=== PATIENT | female | born 1960 | race Caucasian/White ===

== ENCOUNTER 2016-05-20 04:45 | Inpatient (IN) | payer MEDICARE, OTHER ==
[~2016-05-20] VITALS: Ht 152.4 cm; Wt 38.5 kg
[~2016-05-20 04:45] MED LIST: HYDR-3498 PO; LIPA1CAP2 PO; ONDA4TAB35 PO; RAMI1.253 PO
[2016-05-20] MEDS ORDERED: ONDANSETRON 4 MG INJ IV STA (05:33)
[2016-05-20 05:36] LABS: ADD SCAN DIFF NO
[2016-05-20 05:47] LABS: BASOPHILS % 0.1 % (0.0-2.0); HEMATOCRIT 38.8 % (37.0-47.0); HEMOGLOBIN 12.9 g/dl (12.0-16.0); LYMPHOCYTES # 0.8 10^3/ul (0.8-2.9); LYMPHOCYTES % 8.4 % (15.0-51.0); MEAN CORPUSCULAR HGB CONC 33.2 g/dl (32.0-37.0); MEAN CORPUSCULAR VOLUME 96.3 fl (82.0-101.0); MEAN PLATELET VOLUME 10.8 fl (7.4-10.4); MONOCYTE # 0.5 10^3/ul (0.3-0.9); MONOCYTES % 5.9 % (0.0-11.0); NEUTROPHIL # 7.6 10^3/ul (1.6-7.5); NEUTROPHILS % 85.4 % (39.0-77.0); PLATELET COUNT 171 10^3/UL (140-415); RED BLOOD COUNT 4.03 10^6/ul (4.20-5.40); RED CELL DISTRIBUTION WIDTH 12.4 % (11.5-14.5)
[2016-05-20 05:54] LABS: CHLORIDE 110 mmol/L (97-110)
[2016-05-20 05:55] LABS: ALBUMIN 2.5 g/dl (3.3-4.9); POTASSIUM 4.4 mmol/L (3.5-5.1); SODIUM 133 mmol/L (135-144)
[2016-05-20 05:58] LABS: ALANINE AMINOTRANSFERASE 51 IU/L (13-69); ALBUMIN/GLOBULIN RATIO 0.73; ALKALINE PHOSPHATASE 153 IU/L (42-121); ANION GAP 10 (8-16); ASPARTATE AMINO TRANSFERASE 53 IU/L (15-46); BILIRUBIN,INDIRECT 0.2 mg/dl (0-1.1); BILIRUBIN,TOTAL 0.2 mg/dl (0.2-1.3); BLOOD UREA NITROGEN 7 mg/dl (7-20); CARBON DIOXIDE 17 mmol/L (21-31); CREATININE 0.82 mg/dl (0.44-1.00); GLUCOSE 81 mg/dl (70-220); TOTAL PROTEIN 5.9 g/dl (6.1-8.1)
[2016-05-20 05:59] LABS: INR 0.88; PROTIME 11.9 Sec (12.2-14.2); PT RATIO 0.9
[2016-05-20 06:00] LABS: PARTIAL THROMBOPLASTIN TIME 25.5 Sec (25.0-35.0)
[2016-05-20] MEDS ORDERED: morphine 2 MG INJ IV ONE (06:00)
--- NOTE | 2016-05-20 06:07 | RADRPT ---
PROCEDURE: XR Chest. CLINICAL INDICATION: Sepsis . Lung and gastric cancer. TECHNIQUE: Portable single view of the chest COMPARISON: 06/11/2015 FINDINGS: Clips and suture material are present from prior right partial lung resection. Right chest port is again seen in place. Heart size remains within normal limits. There is improved aeration of the la teral right lung base compared with prior, likely predominately due to decrease in pleural effusion. No focal infiltrate or pleural effusion is seen. No bony abnormality is seen. No overt congestiv e heart failure. IMPRESSION: Resolved right pleural effusion. Postsurgical changes. No definite acute disease. Right chest por t. RPTAT: HLBE Physician Frank Date Time Electronically viewed and signed by Renetta Frederick Physician on 05/20/2016 06:07 RIZWANA/
[2016-05-20 06:13] LABS: TROPONIN-I < 0.012 ng/ml (0.00-0.12)
[2016-05-20] MEDS ORDERED: SODIUM CHLORIDE 0.9% 1L BAG IV* STA (06:30)
[2016-05-20] MEDS ORDERED: DIPHENOXYLATE/ATROPINE TAB PO ONE (06:30)
[2016-05-20] MEDS ORDERED: SOD CHLORIDE 0.9% 1,000 ML IV STA ×2 (07:33→09:08)
--- NOTE | 2016-05-20 07:33 | ERA ---
ER Documentation Chief Complaint Date/Time DATE: 05/20/16 TIME: 07:28 Chief Complaint Pt c/o lower abd pain and uncontrollable diarrhe since This is a very pleasant 55-year-old female with a known history of gastric carcinoma initially diagnosed in 2002. The patient had undergone radiation and chemotherapy and had a gastrectomy with a Whipple procedure. In 2014 the patient indicated she developed lung carcinoma and had a partial right lobectomy. The patient indicates that over the past 24 hours she has had lower abdominal pain. She indicates the pain is a cramping like sensation. She has had multiple episodes of loose watery stools in the past 24 hours. The patient is felt nauseous and anorexic. The patient however denies any bilious or nonbilious emesis. The patient indicates she did not take any analgesic medication prior to arrival. She also denies any recent antibiotic use or hospitalizations. She has had no fevers or shaking or chills. She denies any frequency urgency or dysuria. She denies any shortness of breath at rest or exertion and denies any recent weight loss. ROS All systems reviewed and are negative except as per history of present illness. Medications Home Meds Active Scripts Ondansetron Hcl* (Zofran* ODT) 4 mg -ODT Tab.disper, 4 MG PO Q6 Y for NAUSEA AND /OR VOMITING, #10 TAB Prov:KELLEY THOMAS MD 06/11/15 Hydrocodone Bit-Acetaminophen* (Sipsey*) 5-325 Mg Tab, 1 TAB PO Q6 Y for PAIN, # 12 TAB Prov:KELLEY THOMAS MD 06/11/15 Reported Medications Ramipril (Ramipril) 1.25 Mg Capsule, 1.25 MG PO DAILY, CAP 06/11/15 Itdctf-Kyqrgbbf-Pzwrlmc* (Creon DR* 6,000) 6,000 L-19,000-30,000 Unit Capsule. , 1 CAP PO TID, CAP 01/09/14 Allergies Allergies: Coded Allergies: No Known Allergy (Unverified , 06/11/15) PMhx/Soc History of Surgery: Yes (STOMACH SX 09/2002, TUBAL LG) Anesthesia Reaction: No Hx Neurological Disorder: No Hx Respiratory Disorders: No Hx Cardiac Disorders: Yes (HTN (NO MED TX)) Hx Psychiatric Problems: No Hx Alcohol Use: No Hx Substance Use: No Hx Tobacco Use: No Physical Exam Vitals Vital Signs Date Time Temp Pulse Resp B/P Pulse Ox O2 Delivery O2 Flow Rate FiO2 05/20/16 07:46 98.8 101 18 135/76 100 Room Air 05/20/16 05:02 100.0 125 20 137/87 100 Physical Exam Constitutional:Well-developed. Well-nourished. HEENT:Normocephalic. Atraumatic.Pupils were equal round reactive to light. Dry mucous membranes.No tonsillar exudates. Neck: No nuchal rigidity. No lymphadenopathy. No posterior cervical spine tenderness or step-offs. Respiratory: Not using accessory muscles of respiration.Lungs were clear to auscultation bilaterally. No rhonchi. No rales. No wheezing. Cardiovascular: Tachycardia with regular rhythm.No murmurs. No rubs were appreciated.S1, S2 normal. Distal pulses are palpable 2+ bilaterally. Right chest wall port catheter in place. GI: Abdomen was soft. Tenderness in the left lower quadrant. Chevron's incision scar present. Non Distended. No pulsatile abdominal masses or bruits. No rebound. No guarding. Bowel sounds were present and normal. Muscle skeletal: Full range of motion of both the upper and lower extremities bilaterally.Normal muscle tone.No assymetrical calf tenderness or swelling. Skin: No petechia, no purpura. No lesions on the palms or the soles of the feet. No maculopapular rash. NEURO: Patient was alert, awake, orientated x3.No facial droop. Gait observed and normal with no ataxia.Speech had regular rate and rhythm. No focal neurological deficits. Result Diagram: 05/20/1625 05/20/1625 Results 24 hrs Laboratory Tests Test 05/20/16 05:25 White Blood Count 9.010^3/ul Red Blood Count 4.0310^6/ul Hemoglobin 12.9g/dl Hematocrit 38.8% Mean Corpuscular Volume 96.3fl Mean Corpuscular Hemoglobin 32.0pg Mean Corpuscular Hemoglobin Concent 33.2g/dl Red Cell Distribution Width 12.4% Platelet Count 03751^3/UL Mean Platelet Volume 10.8fl Neutrophils % 85.4% Lymphocytes % 8.4% Monocytes % 5.9% Eosinophils % 0.0% Basophils % 0.1% Nucleated Red Blood Cells % 0.0/100WBC Neutrophils # 7.610^3/ul Lymphocytes # 0.810^3/ul Monocytes # 0.510^3/ul Eosinophils # 0.010^3/ul Basophils # 0.010^3/ul Nucleated Red Blood Cells # 0.010^3/ul Prothrombin Time 11.9Sec Prothrombin Time Ratio 0.9 INR International Normalized Ratio 0.88 Activated Partial Thromboplast Time 25.5Sec Sodium Level 133mmol/L Potassium Level 4.4mmol/L Chloride Level 110mmol/L Carbon Dioxide Level 17mmol/L Anion Gap 10 Blood Urea Nitrogen 7mg/dl Creatinine 0.82mg/dl Glucose Level 81mg/dl Lactic Acid Level 1.6mmol/L Calcium Level 8.0mg/dl Total Bilirubin 0.2mg/dl Direct Bilirubin 0.00mg/dl Indirect Bilirubin 0.2mg/dl Aspartate Amino Transf (AST/SGOT) 53IU/L Alanine Aminotransferase (ALT/SGPT) 51IU/L Alkaline Phosphatase 153IU/L Troponin I < 0.012ng/ml Total Protein 5.9g/dl Albumin 2.5g/dl Globulin 3.40g/dl Albumin/Globulin Ratio 0.73 Current Medications Medications (Trade) Dose Ordered Sig/Priscila Route PRN Reason Start Time Stop Time Status Last Admin Dose Admin Morphine Sulfate (morphine) 2 mg ONCE ONCE IV 05/20/16 06:00 05/20/16 06:01 DC Ondansetron HCl (Zofran Inj) 4 mg ONCE STAT IV 05/20/16 05:33 05/20/16 05:34 DC Diphenoxylate HCl/ Atropine (Lomotil) 1 tab ONCE ONCE PO 05/20/16 06:30 05/20/16 06:31 DC 05/20/16 07:06 Sodium Chloride (NS) 1,190 ml BOLUS OVER 2 HOURS STAT IV* 05/20/16 06:30 05/20/16 06:41 DC 05/20/16 06:45 Vancomycin HCl (Vancomycin Oral Syringe) 125 mg ONCE ONCE PO 05/20/16 08:00 05/20/16 08:01 DC 05/20/16 07:52 Metronidazole 500 mg 500 mg ONCE ONCE PO 05/20/16 08:00 05/20/16 08:01 DC 05/20/16 07:53 Sodium Chloride (NS) 1,000 ml @ 1,000 mls/hr Q1H STAT IV 05/20/16 07:33 05/20/16 08:32 DC 05/20/16 07:45 IV Flush 10 ml 10 ml STK-MED ONCE .ROUTE 05/20/16 08:18 05/20/16 08:19 DC 05/20/16 08:30 Sodium Chloride (NS) 100 ml @ ud STK-MED ONCE .ROUTE 05/20/16 08:18 05/20/16 08:19 DC 05/20/16 08:30 Iohexol (Omnipaque 300mg/ ml) 150 ml STK-MED ONCE .ROUTE 05/20/16 08:18 05/20/16 08:19 DC 05/20/16 08:30 Procedures/MDM This patient presented to the emergency department with abdominal pain and diarrhea and was seen and evaluated by myself. My differential diagnosis included but was not limited to abdominal aortic aneurysm, appendicitis, pancreatitis, perforated peptic ulcer, perforated viscus, Boerhaaves syndrome or visceral pain such as diverticulitis, DKA, esophagitis, hepatitis or bowel obstruction. The patient was placed on a athletic monitor, continuous pulse oximetry, and IV access was established by nursing staff. The patient was refusing IV analgesic medication. The patient had no leukocytosis, no renal failure and no recent antibiotic use with fluoroquinolones clindamycin that could be risk factors to indicate Clostridium difficile as result of her diarrhea. She also denies any recent travel indicate a bacterial etiology or parasitic etiology. The patient however had frequent episodes of watery greenish stool while in the emergency department. Blood cultures and urine cultures were obtained. The patient received Lomotil after C. difficile culture was sent. Prophylactically treated the patient for possible Clostridium difficile and therefore was given oral Flagyl and vancomycin. I obtained a chest radiograph given that the patient has a remote history of right lobectomy and pleural effusion. Chest radiograph reviewed by myself the radiologist indicated the following: Resolved right pleural effusion. Postsurgical changes. No definite acute disease. Right chest port. 12 Lead EKG tracing ordered and reviewed by myself showed: Sinus tachycardia 112 bpm and no arrhythmia. CO interval normal. QRS duration normal. No ST segment elevation No ST segment depression. No changes consistent with acute ischemia. And obtained a CT scan of the abdomen given that the patient has a significant previous surgical history with reproducible pain in the left lower quadrant. CT scan of the abdomen was reviewed by the radiologist as well as myself and indicated the followin. Diffuse wall thickening of the large and small bowel, consistent with internal colitis. Differential considerations include infectious and inflammatory etiologies. Ischemia is felt to be less likely given the distribution. 2. Small volume of free fluid within the pelvis, which is nonspecific. 3. Similar postoperative change related to a Whipple procedure. Similar postoperative change at the right lung base. Observation Note: Time: 4 hours Family Hx: No Hypertension Evaluation: Multiple exams showed no improvement of her physical exam as the patient continued to have a significant amount of diarrhea. Therefore I did feel the patient required admission for treatment for her colitis, possible C. difficile and IV fluid resuscitation. Patient will be admitted to the hospitalist to the medical surgical floor in serious condition Departure Diagnosis: Primary Impression: Colitis, Clostridium difficile Condition: Serious LEXY CIFUENTES May 20, 2016 07:33
[2016-05-20 07:46] VITALS: TEMP 98.8
[2016-05-20] MEDS ORDERED: VANCOMYCIN HCL 250 MG/5ML POSYG PO ONE (08:00)
[2016-05-20] MEDS ORDERED: metroNIDAZOLE 500 MG TAB PO ONE (08:00)
[2016-05-20] MEDS ORDERED: IOHEXOL 300MG/ML 150 ML BTL ONE (08:18)
[2016-05-20] MEDS ORDERED: SOD CHLORIDE 0.9% 100 ML ONE (08:18)
--- NOTE | 2016-05-20 08:57 | RADRPT ---
PROCEDURE: CT abdomen and pelvis with contrast. CLINICAL INDICATION: Abdominal pain. TECHNIQUE: CT scan of the abdomen and pelvis with contrast was performed after the uneventful intr avenous administration of 90 cc of Omnipaque-300. Coronal and sagittal reformatted images were obtai renee from the axial source images. Images were reviewed on a high-resolution PACS workstation. The to kellee exam CTDI equals 4.09 mGy and the total exam DLP equals 202.01 mGy-cm. One or more of the following dose reduction techniques were used: - Automated exposure control. - Adjustment of the mA and/or kV according to patient size. - Use of iterative reconstruction technique. COMPARISON: CT dated 06/11/2015. FINDINGS: There is similar postoperative change at the right lung base. The visualized lung bases are otherwi se clear. The visualized heart is unremarkable. There is similar atrophy of the left hepatic lobe. No focal hepatic lesion is identified. There is no intra or extra-hepatic biliary ductal dilatation. There is similar postoperative change related to a Whipple procedure. There is no evidence of residual or recurrent disease or complication withi n the operative bed. The spleen, residual pancreas, adrenal glands are unremarkable. There is enzo lar atrophy at the upper pole of both kidneys. There are no renal masses or hydronephrosis. There is diffuse wall thickening of the large and small bowel. There is no evidence of bowel obstru ction. There is no pneumatosis or portal venous gas. The appendix is in the right lower quadrant, a nd is unremarkable. There is no free intraperitoneal air. There is a small volume of fluid within t he pelvis. There is no mesenteric or retroperitoneal adenopathy. The uterus, adnexa, and urinary bl adder are unremarkable. The aorta is nonaneurysmal. There are no concerning osseous lesions. IMPRESSION: 1. Diffuse wall thickening of the large and small bowel, consistent with internal colitis. Differe ntial considerations include infectious and inflammatory etiologies. Ischemia is felt to be less li lisbet given the distribution. 2. Small volume of free fluid within the pelvis, which is nonspecific. 3. Similar postoperative change related to a Whipple procedure. Similar postoperative change at th e right lung base. RPTAT: EE .Armando Zhang MD, MD Date Time Electronically viewed and signed by .Armando Zhang MD, on 05/20/2016 08:56 .P/
[2016-05-20] MEDS ORDERED: ONDANSETRON 4 MG INJ IV PRN ×2 (09:30→11:30)
[2016-05-20] MEDS ORDERED: ACETAMINOPHEN 325 MG TAB PO PRN (09:30)
[2016-05-20 09:38] VITALS: PULSE 87
[2016-05-20] MEDS ORDERED: RAMI2.5C36 PO (09:39)
[2016-05-20 10:12] VITALS: BP 134/78; RESP 22
[2016-05-20 10:37] LABS: ADD UMIC YES; URINE BILIRUBIN (Dip) NEGATIVE (NEGATIVE); URINE BLOOD (Dip) NEGATIVE (NEGATIVE); URINE COLOR LT. YELLOW (YELLOW); URINE GLUCOSE (Dip) NEGATIVE (NEGATIVE); URINE KETONES (Dip) NEGATIVE (NEGATIVE); URINE LEUKOCYTE ESTERASE (Dip) TRACE (NEGATIVE); URINE NITRITE (Dip) NEGATIVE (NEGATIVE); URINE TOTAL PROTEIN (Dip) NEGATIVE (NEGATIVE); URINE UROBILINOGEN (Dip) 0.2 E.U./dL (0.1-1.0)
[2016-05-20 10:50] LABS: URINE RBCS NONE SEEN /HPF (0)
[2016-05-20] MEDS ORDERED: morphine 2 MG INJ IV PRN (11:30)
[2016-05-20] MEDS ORDERED: ZOLPIDEM 5 MG TAB PO PRN (11:30)
[2016-05-20] MEDS ORDERED: NACL 0.9% 3 ML SYG IV SCH (11:30)
--- NOTE | 2016-05-20 12:17 | HP ---
DATE OF ADMISSION: 05/20/2016 CHIEF COMPLAINT: Diarrhea. HISTORY OF PRESENT ILLNESS: The patient is a 56-year-old female with a history of lung cancer and s tomach cancer, status post surgery for both, as well as chemotherapy and radiation. The patient als o reports having a history of hypertension, but states that she does not need medication. She denie s any other past medical history. The patient states that she has been having loose stools for the past 2 days. It became worse last night, she could not sleep. She denies any nausea or vomiting. She has no other complaints at this time. PAST MEDICAL HISTORY: As per HPI. PAST SURGICAL HISTORY: Surgery for lung cancer and stomach cancer, as well as tubal ligation. HOME MEDICATIONS: Please see medication reconciliation. ALLERGIES: KNOWN DRUG ALLERGIES. FAMILY HISTORY: Denies. SOCIAL HISTORY: Denies alcohol, tobacco, or drug abuse. REVIEW OF SYSTEMS: A 12-point review of systems was negative, except for that listed in the HPI. PHYSICAL EXAMINATION: VITAL SIGNS: Temperature is 99.3, pulse 102, respiratory rate is 22, BP is 134/78, saturation 100% on room air. GENERAL: In no acute distress, alert and oriented. HEENT: Normocephalic, atraumatic. LUNGS: Clear to auscultation. CARDIOVASCULAR: Regular rate and rhythm. ABDOMEN: Nondistended, nontender. Soft. EXTREMITIES: No clubbing, cyanosis, or edema. LABORATORY: White count 11.0, hemoglobin 12.9, platelets are 131. Chemistry within normal limits, except for sodium 133, carbon dioxide 17, lactic acid normal at 1.5. LFTs are within normal limits, except for an alkaline phosphatase of 153. INR is normal at 0.88. DIAGNOSTICS: Chest x-ray shows resolving right pleural effusion. Abdominal pelvis CT shows c olitis. ASSESSMENT AND PLAN: 1. Diarrhea secondary to colitis, likely viral. No indication for antibiotics. The patient has no white count. Patient does have a low-grade fever. Once again, this is likely a viral gastroenteri tis. Will treat with IV fluids. Will also culture. 2. Dehydration with hypernatremia secondary to diarrhea. Would treat with IV fluids with normal s tyrone. 3. History of abdominal cancer, as well as lung cancer. Status post surgery, chemo and radiation i n the past. No acute issues. 4. Prophylaxis. Ambulation. Dictated By: ARIC DELGADO/PURVI Conf#: [id number] DID#: [id number]
[2016-05-20] MEDS: SOD CHLORIDE 0.9% 1,000 ML IV SCH ×3 (13:18→21:46)
[2016-05-20] MEDS: BENAZEPRIL 10 MG TAB PO SCH (13:19)
[2016-05-20] MEDS ORDERED: CREON (12k-38k-60k) 1 CAP PO SCH (16:00)
[2016-05-20 18:09] VITALS: Ht 152.4 cm; Wt 38.5 kg
[2016-05-20 20:20] VITALS: BP 111/69; RESP 20
[2016-05-21] MEDS: SOD CHLORIDE 0.9% 1,000 ML IV SCH ×4 (03:21→13:51)
[2016-05-21 06:24] LABS: ADD SCAN DIFF NO
[2016-05-21 06:40] LABS: ABNORMAL IP MESSAGE 1; EOSINOPHILS % 0.6 % (0.0-7.0); HEMATOCRIT 28.7 % (37.0-47.0); HEMOGLOBIN 9.1 g/dl (12.0-16.0); LYMPHOCYTES # 0.5 10^3/ul (0.8-2.9); LYMPHOCYTES % 13.5 % (15.0-51.0); MEAN CORPUSCULAR HEMOGLOBIN 31.1 pg (29.0-33.0); MEAN CORPUSCULAR HGB CONC 31.7 g/dl (32.0-37.0); MONOCYTE # 0.4 10^3/ul (0.3-0.9); MONOCYTES % 10.9 % (0.0-11.0); NEUTROPHIL # 2.5 10^3/ul (1.6-7.5); NEUTROPHILS % 74.4 % (39.0-77.0); PLATELET COUNT 137 10^3/UL (140-415); RED BLOOD COUNT 2.93 10^6/ul (4.20-5.40); RED CELL DISTRIBUTION WIDTH 12.8 % (11.5-14.5); WHITE BLOOD COUNT 3.4 10^3/ul (4.8-10.8)
[2016-05-21 06:50] LABS: ALBUMIN 1.4 g/dl (3.3-4.9); CHLORIDE 124 mmol/L (97-110)
[2016-05-21 06:51] LABS: POTASSIUM 3.3 mmol/L (3.5-5.1); SODIUM 136 mmol/L (135-144)
[2016-05-21 06:52] LABS: CREATININE 0.73 mg/dl (0.44-1.00)
[2016-05-21 06:53] LABS: ALANINE AMINOTRANSFERASE 32 IU/L (13-69); ALBUMIN/GLOBULIN RATIO 0.63; ALKALINE PHOSPHATASE 86 IU/L (42-121); ANION GAP 1 (8-16); ASPARTATE AMINO TRANSFERASE 30 IU/L (15-46); BLOOD UREA NITROGEN 4 mg/dl (7-20); CALCIUM 6.3 mg/dl (8.4-10.2); CARBON DIOXIDE 14 mmol/L (21-31); GLUCOSE 73 mg/dl (70-220); MAGNESIUM 1.8 mg/dl (1.7-2.5); PHOSPHORUS 3.1 mg/dl (2.5-4.9); TOTAL PROTEIN 3.6 g/dl (6.1-8.1)
[2016-05-21 06:54] LABS: HDL CHOLESTEROL 25 mg/dl (37-92); TRIGLYCERIDES 47 mg/dl (0-149)
[2016-05-21 07:01] LABS: CHOLESTEROL < 50 mg/dl (100-200)
[2016-05-21 07:09] LABS: T3 UPTAKE 51.3 % (23.5-40.5)
[2016-05-21 07:20] VITALS: BP 119/72; RESP 18
[2016-05-21] MEDS: CREON (12k-38k-60k) 1 CAP PO SCH ×3 (09:03→17:27)
[2016-05-21] MEDS: BENAZEPRIL 10 MG TAB PO SCH (09:04)
[2016-05-21] MEDS ORDERED: POTASSIUM CHLORIDE (SR) 20 MEQ TAB PO STA ×2 (10:30→17:39)
--- NOTE | 2016-05-21 16:51 | CONS ---
DATE OF ADMISSION: 05/20/2016 DATE OF CONSULTATION: 05/21/2016 TYPE OF CONSULTATION: Nephrology. REASON FOR CONSULTATION: Acidosis, electrolyte abnormality. PHYSICIAN REQUESTING CONSULT: Dr. Griffith. HISTORY OF PRESENT ILLNESS: This is a 56-year-old female with a past medical history of gastric can cer, status post Whipple procedure, gastrectomy, history of lung cancer status post surgery, who pre sented to [facility] with complaints of lower abdominal pain, diarrhea for 5 days. The patient states her symptoms began cramp-like, with radiation. The patient had multiple loose watery stools in the last 24 hours as well as decreased p.o. intake. The patient had no emesis. As a result, she came to the emergency room for evaluation. Upon arrival, the patient had a CT scan o f the abdomen and pelvis which showed diffuse wall thickening of the large and small bowel consisten t with internal colitis, small amount of free fluid in the abdomen and postoperative changes related to the Whipple as well as postoperative changes in the right lung base. The patient was placed on IV fluids and admitted to medical/surgical for evaluation. While on med/surg, patient's diarrhea, a lthough copious, has been slowly improving. The patient, however, has developed an acidosis that bruce s worsened with a bicarbonate level of 4, and patient has been hypokalemic with a potassium level of 3.3. There has been no hemoptysis, hemetemesis, hematochezia. PAST MEDICAL HISTORY: History of gastric carcinoma status post Whipple procedure, gastrectomy, hist ory of lung cancer, status post right lobectomy. Also history of hypertension and pancreatic insuff iciency. ALLERGIES: NO KNOWN DRUG ALLERGIES. FAMILY HISTORY: Noncontributory. SOCIAL HISTORY: Does drink, smoke or do drugs. FAMILY HISTORY: Noncontributory. MEDICATIONS: The patient's medications have been reviewed. REVIEW OF SYSTEMS: A 14-point review of systems was conducted. Pertinent positives in HPI, otherwi se negative. PHYSICAL EXAMINATION: VITAL SIGNS: Blood pressure 119/72, respiration 18, pulse 77, temperature 98.3. HEENT: Head is normocephalic. Pupils are reactive to light. NECK: Supple. HEART: Regular rate. LUNGS: Show diminished breath sounds at the base. ABDOMEN: Soft, mild tenderness to palpation. No rebound or guarding. EXTREMITIES: Negative for clubbing, cyanosis, edema. DERMATOLOGIC: No rashes. MUSCULOSKELETAL: No joint effusions. NEUROLOGIC: No change in exam. MEDICATIONS: The patient's medications have been reviewed. LABORATORY DATA: Shows a sodium of 136, potassium 3.3, chloride 124, bicarbonate 14, BUN is 4, crea tinine 0.73. White count 3.4, hemoglobin 9.1, hematocrit 28.7, platelet count is 137. IMAGING STUDIES: As stated in HPI. Chest x-ray shows no acute disease process. ASSESSMENT AND PLAN: This is a 56-year-old female who presents with: 1. Hyperchloremic metabolic acidosis, etiology secondary to gastrointestinal loss, acute diarrhea a nd IV fluids. The plan at this point is to check an ABG to see if the patient is appropriately comp ensated. Will change IV fluids from and normal saline to 1/2 normal saline with 75 mEq of bicarbona te. Will monitor electrolytes closely. We will continue to monitor daily bicarbonate levels. Agre e with supportive care of diarrhea. May consider GI consultation if no resolution. Monitor closel y. 2. Hyperkalemia secondary to gastrointestinal loss. We will replete with potassium chloride 40 mEq and monitor. 3. Anemia, likely of chronic disease. Monitor H and H levels. 4. Acute diarrhea secondary to colitis, likely viral. At this point, will continue current medical management. Continue IV hydration. 5. History of gastric cancer, status post Whipple procedure. 6. History of lung cancer, status post right lobectomy, status post radiation. 7. History of hypertension. Patient is currently now normotensive. Will hold blood pressure medic ations. 8. History of pancreatic insufficiency. Continue Creon. Thank you, Dr. Griffith, for this interesting consultation. It will be a pleasure to follow patient with you throughout the hospital course. Dictated By: SIMONA VELAZQUEZ DO NR/NTS Conf#: [id number] DID#: [id number] CC: ARIC GRIFFITH MD;*EndCC*
[2016-05-21 17:12] LABS: POTASSIUM 4.4 mmol/L (3.5-5.1)
[2016-05-21 17:14] LABS: CREATININE 0.75 mg/dl (0.44-1.00)
[2016-05-21 17:15] LABS: CALCIUM 6.9 mg/dl (8.4-10.2)
[2016-05-21 17:20] LABS: AADO2 Arterial 19.6 mmHg (7.0-24.0); Allen Test ACCEPTAB; Arterial Base Excess -12.5 mmol/L (-3.0-3); Arterial COHb 0.2 % (0.0-3.0); Arterial Fraction of Oxyhgb 96.2 % (93.0-99.0); Arterial MetHb 0.5 % (0.0-1.5); Arterial Total Hemglobin 10.9 g/dl (12.0-18.0); MODE ROOM AIR
--- NOTE | 2016-05-21 17:46 | PN ---
Date/Time of Note Date/Time of Note DATE: 05/21/16 TIME: 17:43 Assessment/Plan VTE Prophylaxis VTE Prophylaxis Intervention: ambulation Lines/Catheters IV C[facility]ter Type (from [facility]): Peripheral IV Urinary Cath still in place: No Assessment/Plan Chief Complaint/Hosp Course 1. Diarrhea secondary to colitis likely viral No indication for antibiotics, continue IV fluids Stool culture and C. difficile is negative 2. Non-anion gap metabolic acidosis secondary to diarrhea Nephrology consultation appreciated, continue IV fluids, nephro may start a bicarb drip if indicated 3. History of abdominal cancer, as well as lung cancer. Status post surgery, chemo and radiation in the past. No acute issues. 4. Prophylaxis Ambulation Dispo: Anticipate DC in the next 1-2 days Problems: Subjective 24 Hr Interval Summary Gastrointestinal: diarrhea Exam/Review of Systems Vital Signs Vitals Vital Signs Date Time Temp Pulse Resp B/P Pulse Ox O2 Delivery O2 Flow Rate FiO2 05/21/16 07:20 98.3 77 18 119/72 99 05/20/16 09:38 Room Air Intake and Output 05/20/16 05/20/16 05/21/16 15:00 23:00 07:00 Intake Total 1570 ml 1820 ml Balance 1570 ml 1820 ml Exam Constitutional: alert, oriented Respiratory: clear to auscultation Cardiovascular: regular rate and rhythm Gastrointestinal: soft, No distended Musculoskeletal: nl extremities to inspection Results Result Diagram: 05/21/16 0505 05/21/16 1645 Results 24 hrs Laboratory Tests Test 05/21/16 05:05 05/21/16 16:14 05/21/16 16:45 White Blood Count 3.4 #L Red Blood Count 2.93 #L Hemoglobin 9.1 #L Hematocrit 28.7 #L Mean Corpuscular Volume 98.0 Mean Corpuscular Hemoglobin 31.1 Mean Corpuscular Hemoglobin Concent 31.7 L Red Cell Distribution Width 12.8 Platelet Count 137 L Mean Platelet Volume 11.0 H Neutrophils % 74.4 Lymphocytes % 13.5 L Monocytes % 10.9 Eosinophils % 0.6 Basophils % 0.0 Nucleated Red Blood Cells % 0.0 Neutrophils # 2.5 Lymphocytes # 0.5 L Monocytes # 0.4 Eosinophils # 0.0 Basophils # 0.0 Nucleated Red Blood Cells # 0.0 Sodium Level 136 136 Potassium Level 3.3 L 4.4 Chloride Level 124 H 124 H Carbon Dioxide Level 14 L 13 L Anion Gap 1 #L 3 L Blood Urea Nitrogen 4 L 3 L Creatinine 0.73 0.75 Glucose Level 73 90 Hemoglobin A1c 4.9 Calcium Level 6.3 L 6.9 L Phosphorus Level 3.1 Magnesium Level 1.8 Total Bilirubin 0.0 L Direct Bilirubin 0.00 Indirect Bilirubin 0.0 Aspartate Amino Transf (AST/SGOT) 30 Alanine Aminotransferase (ALT/SGPT) 32 Alkaline Phosphatase 86 Total Protein 3.6 #L Albumin 1.4 #L Globulin 2.20 Albumin/Globulin Ratio 0.63 Triglycerides Level 47 Cholesterol Level < 50 L LDL Cholesterol, Calculated HDL Cholesterol 25 L Cholesterol/HDL Ratio Lipase < 10 L Free Thyroxine Index 2.46 Thyroxine (T4) 4.8 L Triiodothyronine (T3) Uptake 51.3 H Blood Gas Specimen Source Blood arterial Arterial Blood Date Drawn 05/21/2016 5:10:11 PM Arterial Blood pH (Temp corrected) 7.361 Arterial Blood pCO2 (Temp correct) 19.8 L Arterial Blood pO2 (Temp corrected) 106.4 H Arterial Blood HCO3 11.0 L Arterial Blood Base Excess -12.5 L Arterial Blood Oxygen Saturation 96.9 Kobe Test ACCEPTAB Arterial Blood Gas Puncture Site Right Radial Arterial Blood Carboxyhemoglobin 0.2 Arterial Blood Methemoglobin 0.5 Blood Gas A-a O2 Differential 19.6 Oxyhemoglobin Percent 96.2 Total Hemoglobin 10.9 L Blood Gas Temperature 37.0 Blood Gas Modality ROOM AIR FiO2 21.0 Blood Gas Critical Value Read Back FREDDY PHAM Blood Gas Notified Whom SAM Blood Gas Notified Time 05/21/2016 5:18:00 PM Medications Medications Current Medications Sodium Chloride (NS) 1,000 ml @ 125 mls/hr Q8H IV Last administered on t 13:51; Admin Dose 125 MLS/HR; Start 05/20/16 at 11:21 Ondansetron HCl (Zofran Inj) 4 mg Q6H PRN IV NAUSEA AND/OR VOMITING; Start 05/20 at 11:30 Morphine Sulfate (morphine) 2 mg Q4H PRN IV SEVERE PAIN LEVEL 7-10; Start at 11:30 Zolpidem Tartrate (Ambien) 5 mg QHS PRN PO SLEEP; Start 05/20/16 at 11:30 Benazepril HCl (Lotensin) 10 mg DAILY PO Last administered on 05/21/16t 09:04; Admin Dose 10 MG; Start 05/20/16 at 13:00; Status Future Hold ARIC ORANTES May 21, 2016 17:46
[2016-05-21] MEDS: SODIUM BICARBONATE (IV ADD) 75 MEQ in SOD CHLORIDE 0.45% 1,000 ML IV SCH (18:51)
[2016-05-21 20:01] VITALS: BP 142/79; RESP 16
[2016-05-21 20:25] LABS: ADD UMIC NO; URINE BILIRUBIN (Dip) NEGATIVE (NEGATIVE); URINE BLOOD (Dip) NEGATIVE (NEGATIVE); URINE COLOR LT. YELLOW (YELLOW); URINE GLUCOSE (Dip) NEGATIVE (NEGATIVE); URINE KETONES (Dip) NEGATIVE (NEGATIVE); URINE LEUKOCYTE ESTERASE (Dip) NEGATIVE (NEGATIVE); URINE NITRITE (Dip) NEGATIVE (NEGATIVE); URINE TOTAL PROTEIN (Dip) NEGATIVE (NEGATIVE); URINE UROBILINOGEN (Dip) 0.2 E.U./dL (0.1-1.0)
[2016-05-21 20:34] LABS: PROTEIN URINE 14.9 mg/dl (0.0-9.9)
[2016-05-22 05:35] LABS: ADD SCAN DIFF NO
[2016-05-22 05:39] LABS: ABNORMAL IP MESSAGE 1; HEMATOCRIT 28.2 % (37.0-47.0); HEMOGLOBIN 9.2 g/dl (12.0-16.0); LYMPHOCYTES # 0.5 10^3/ul (0.8-2.9); LYMPHOCYTES % 12.9 % (15.0-51.0); MEAN CORPUSCULAR HEMOGLOBIN 31.8 pg (29.0-33.0); MEAN CORPUSCULAR HGB CONC 32.6 g/dl (32.0-37.0); MEAN CORPUSCULAR VOLUME 97.6 fl (82.0-101.0); MEAN PLATELET VOLUME 10.7 fl (7.4-10.4); MONOCYTE # 0.4 10^3/ul (0.3-0.9); NEUTROPHIL # 3.2 10^3/ul (1.6-7.5); NEUTROPHILS % 76.9 % (39.0-77.0); PLATELET COUNT 152 10^3/UL (140-415); RED BLOOD COUNT 2.89 10^6/ul (4.20-5.40); RED CELL DISTRIBUTION WIDTH 12.6 % (11.5-14.5); WHITE BLOOD COUNT 4.1 10^3/ul (4.8-10.8)
[2016-05-22 06:02] LABS: POTASSIUM 3.4 mmol/L (3.5-5.1)
[2016-05-22 06:05] LABS: CREATININE 0.79 mg/dl (0.44-1.00)
[2016-05-22 06:06] LABS: CALCIUM 6.9 mg/dl (8.4-10.2); PHOSPHORUS 2.7 mg/dl (2.5-4.9)
[2016-05-22 07:25] VITALS: BP 139/77; RESP 18
[2016-05-22] MEDS: CREON (12k-38k-60k) 1 CAP PO SCH ×3 (08:18→17:27)
[2016-05-22] MEDS ORDERED: POTASSIUM CHLORIDE (SR) 20 MEQ TAB PO STA (10:13)
[2016-05-22] MEDS: SODIUM BICARBONATE (IV ADD) 75 MEQ in SOD CHLORIDE 0.45% 1,000 ML IV SCH (12:06)
--- NOTE | 2016-05-22 12:33 | PN ---
DATE: 05/22/2016 SUBJECTIVE: The patient is stable, no acute events overnight. No fevers, chills, nausea/vomiting. The patient continues to have abdominal pain, continues to have diarrhea. OBJECTIVE: VITAL SIGNS: Blood pressure is 139/77, respiration 18, pulse 73, temperature 98.4. HEENT: Head is normocephalic. NECK: Supple. HEART: Regular rate. LUNGS: Show diminished breath sounds at base. ABDOMEN: Soft, nontender to palpation. No rebound or guarding. EXTREMITIES: Negative for clubbing, cyanosis, edema. DERMATOLOGIC: No rashes. MUSCULOSKELETAL: No joint effusions. NEUROLOGIC: No change in exam. MEDICATIONS: The patient's medications have been reviewed. LABORATORY DATA: Show sodium 138, potassium 3.4, chloride 119, bicarbonate 14, BUN 3, creatinine 0. 79. White count 4.1, hemoglobin 9.2, hematocrit 28.2, platelet count is 152. ASSESSMENT AND PLAN: 1. Hyperchloremic metabolic acidosis, etiology secondary to gastrointestinal loss and IV fluids. T he patient's ABG showed appropriate compensation with a pH 7.36, pCO2 of 20, and a base excess of -1 2. The patient was placed on bicarbonate drip due to ongoing GI losses. The patient's bicarbonate levels have been stable. At this point, continue current treatment plan. Continue to monitor bicar bonate levels closely. Continue treating underlying colitis. 2. Hypokalemia secondary to gastrointestinal losses. Continue replete with potassium chloride and monitor potassium levels closely. 3. Anemia of chronic disease. Monitor hemoglobin and hematocrit levels. 4. Acute diarrhea secondary to colitis. Continue medical management. 5. History of gastric cancer, status post Whipple procedure. 6. History of lung cancer status post right lobectomy. 7. History of hypertension. The patient has blood pressures that are currently controlled. Contin ue to monitor. 8. History of pancreatic insufficiency. Continue Creon. Dictated By: SIMONA CORONA/PURVI Conf#: [id number] DID#: [id number]
[2016-05-22] MEDS ORDERED: LOPERAMIDE 2 MG CAP PO ONE (15:00)
--- NOTE | 2016-05-22 15:00 | PN ---
Date/Time of Note Date/Time of Note DATE: 05/22/16 TIME: 14:54 Assessment/Plan VTE Prophylaxis VTE Prophylaxis Intervention: SCD's Lines/Catheters IV C[facility]ter Type (from [facility] Peripheral IV Urinary Cath still in place: No Assessment/Plan Assessment/Plan 1. acute gastroenteritis, improving, still with diarrhea but less 2. Non-anion gap metabolic acidosis secondary to diarrhea Nephrology consultation appreciated, continue IV fluids, nephro may start a bicarb drip if indicated 3. History of abdominal cancer, as well as lung cancer. Status post surgery, chemo and radiation in the past. No acute issues. 4. Prophylaxis Ambulation Exam/Review of Systems Vital Signs Vitals Vital Signs Date Time Temp Pulse Resp B/P Pulse Ox O2 Delivery O2 Flow Rate FiO2 05/22/16 07:25 98.4 93 18 139/77 100 05/20/16 09:38 Room Air Intake and Output 05/21/16 05/21/16 05/22/16 15:00 23:00 07:00 Intake Total 1000 ml 1030 ml 2050 ml Balance 1000 ml 1030 ml 2050 ml Results Result Diagram: 05/22/16 0500 05/22/16 0500 Results 24 hrs Laboratory Tests Test 05/21/16 16:14 05/21/16 16:45 05/21/16 19:32 05/22/16 05:00 Blood Gas Specimen Source Blood arterial Arterial Blood Date Drawn 05/21/2016 5:10:11 PM Arterial Blood pH (Temp corrected) 7.361 Arterial Blood pCO2 (Temp correct) 19.8 L Arterial Blood pO2 (Temp corrected) 106.4 H Arterial Blood HCO3 11.0 L Arterial Blood Base Excess -12.5 L Arterial Blood Oxygen Saturation 96.9 Kobe Test ACCEPTAB Arterial Blood Gas Puncture Site Right Radial Arterial Blood Carboxyhemoglobin 0.2 Arterial Blood Methemoglobin 0.5 Blood Gas A-a O2 Differential 19.6 Oxyhemoglobin Percent 96.2 Total Hemoglobin 10.9 L Blood Gas Temperature 37.0 Blood Gas Modality ROOM AIR FiO2 21.0 Blood Gas Critical Value Read Back FREDDY RN Blood Gas Notified Whom SAM Blood Gas Notified Time 05/21/2016 5:18:00 PM Sodium Level 136 138 Potassium Level 4.4 3.4 L Chloride Level 124 H 119 H Carbon Dioxide Level 13 L 14 L Anion Gap 3 L 8 Blood Urea Nitrogen 3 L 3 L Creatinine 0.75 0.79 Glucose Level 90 78 Calcium Level 6.9 L 6.9 L Urine Color LT. YELLOW Urine Clarity CLEAR Urine pH 6.0 Urine Specific [place] 1.015 Urine Ketones NEGATIVE Urine Nitrite NEGATIVE Urine Bilirubin NEGATIVE Urine Urobilinogen 0.2 E.U./dL Urine Leukocyte Esterase NEGATIVE Urine Hemoglobin NEGATIVE Urine Random Creatinine 36.50 Urine Random Sodium 180 H Urine Glucose NEGATIVE Urine Total Protein 14.9 H White Blood Count 4.1 #L Red Blood Count 2.89 L Hemoglobin 9.2 L Hematocrit 28.2 L Mean Corpuscular Volume 97.6 Mean Corpuscular Hemoglobin 31.8 Mean Corpuscular Hemoglobin Concent 32.6 Red Cell Distribution Width 12.6 Platelet Count 152 Mean Platelet Volume 10.7 H Neutrophils % 76.9 Lymphocytes % 12.9 L Monocytes % 10.0 Eosinophils % 0.0 Basophils % 0.0 Nucleated Red Blood Cells % 0.0 Neutrophils # 3.2 Lymphocytes # 0.5 L Monocytes # 0.4 Eosinophils # 0.0 Basophils # 0.0 Nucleated Red Blood Cells # 0.0 Phosphorus Level 2.7 Magnesium Level 2.0 Medications Medications Current Medications Ondansetron HCl (Zofran Inj) 4 mg Q6H PRN IV NAUSEA AND/OR VOMITING; Start 05/20 at 11:30 Morphine Sulfate (morphine) 2 mg Q4H PRN IV SEVERE PAIN LEVEL 7-10 Last administered on 05/22/16 08:19; Admin Dose 2 MG; Start 05/20/16 at 11:30 Zolpidem Tartrate (Ambien) 5 mg QHS PRN PO SLEEP; Start 05/20/16 at 11:30 Benazepril HCl 10 mg 10 mg DAILY PO Last administered on 05/21/16 09:04; Admin Dose 10 MG; Start 05/20/16 at 13:00; Status Future Hold Sodium Bicarbonate/ Sodium Chloride (Na Bicarb/02/20 NS) 1,075 ml @ 50 mls/hr [id number] IV Last administered on 05/22/16 12:06; Admin Dose 50 MLS/HR; Start 05/21/16 at 19:00 RHODA KYLE MD May 22, 2016 15:00
[2016-05-22 16:55] LABS: CREATININE 0.91 mg/dl (0.44-1.00); POTASSIUM 3.9 mmol/L (3.5-5.1)
[2016-05-22 16:56] LABS: CALCIUM 7.4 mg/dl (8.4-10.2)
[2016-05-22 22:30] VITALS: BP 133/85; RESP 18
[2016-05-23 05:36] LABS: ADD SCAN DIFF NO
[2016-05-23 05:47] LABS: ABNORMAL IP MESSAGE 1; HEMOGLOBIN 9.6 g/dl (12.0-16.0); LYMPHOCYTES # 0.6 10^3/ul (0.8-2.9); LYMPHOCYTES % 15.1 % (15.0-51.0); MEAN CORPUSCULAR HEMOGLOBIN 31.5 pg (29.0-33.0); MEAN CORPUSCULAR HGB CONC 33.1 g/dl (32.0-37.0); MEAN CORPUSCULAR VOLUME 95.1 fl (82.0-101.0); MEAN PLATELET VOLUME 10.6 fl (7.4-10.4); MONOCYTE # 0.3 10^3/ul (0.3-0.9); MONOCYTES % 8.9 % (0.0-11.0); NEUTROPHIL # 2.8 10^3/ul (1.6-7.5); NEUTROPHILS % 75.7 % (39.0-77.0); PLATELET COUNT 153 10^3/UL (140-415); RED BLOOD COUNT 3.05 10^6/ul (4.20-5.40); RED CELL DISTRIBUTION WIDTH 12.5 % (11.5-14.5); WHITE BLOOD COUNT 3.7 10^3/ul (4.8-10.8)
[2016-05-23 05:51] LABS: ALBUMIN 1.6 g/dl (3.3-4.9)
[2016-05-23 05:52] LABS: POTASSIUM 3.7 mmol/L (3.5-5.1)
[2016-05-23 05:54] LABS: ALBUMIN/GLOBULIN RATIO 0.69; CREATININE 0.81 mg/dl (0.44-1.00); TOTAL PROTEIN 3.9 g/dl (6.1-8.1)
[2016-05-23 05:55] LABS: CALCIUM 7.1 mg/dl (8.4-10.2)
[2016-05-23 06:02] LABS: PHOSPHORUS 2.8 mg/dl (2.5-4.9)
[2016-05-23 06:03] LABS: MAGNESIUM 1.9 mg/dl (1.7-2.5)
[2016-05-23] MEDS: CREON (12k-38k-60k) 1 CAP PO SCH ×3 (08:48→18:34)
[2016-05-23] MEDS: SODIUM BICARBONATE (IV ADD) 75 MEQ in SOD CHLORIDE 0.45% 1,000 ML IV SCH (08:48)
[2016-05-23] MEDS ORDERED: POTASSIUM CHLORIDE (SR) 20 MEQ TAB PO STA (10:19)
--- NOTE | 2016-05-23 10:58 | PN ---
DATE: 05/23/2016 SUBJECTIVE: The patient is stable, continues to have diarrhea, but improving, less frequent per pat ient. No other acute events noted. No hemoptysis, hematemesis or hematochezia. OBJECTIVE: VITAL SIGNS: Blood pressure 132/84, respiration 18, pulse 79, temperature 98.3. HEENT: Head is normocephalic. NECK: Supple. HEART: Regular rate. LUNGS: Show diminished breath sounds at base. ABDOMEN: Soft, nontender to palpation without rebound or guarding. EXTREMITIES: Negative for clubbing, cyanosis, no edema. DERMATOLOGIC: No rashes. MUSCULOSKELETAL: No joint effusions. NEUROLOGIC: No change in exam. MEDICATIONS: Have been reviewed. LABORATORY DATA: Has been reviewed. Shows sodium 139, potassium 4.8, chloride 118, bicarbonate 18, BUN 5, creatinine 0.81. White count 3.7, hemoglobin 9.6, hematocrit 29.0, platelet count 153. ASSESSMENT AND PLAN: 1. Hyperkalemic metabolic acidosis secondary to gastrointestinal loss. The patient's ABG was revie wed. The patient is on bicarbonate drip at a very low rate. Will continue for another 24 hours. T he patient continues to have copious amounts of diarrhea. The patient's bicarbonate levels are slow ly improving. 2. Hypokalemia, replete potassium chloride. 3. Anemia. Continue to monitor hemoglobin and hematocrit levels. 4. Acute diarrhea secondary to colitis. Continue current medical management. 5. History of gastric cancer status post Whipple procedure. 6. History of lung cancer status post lobectomy. 6. Hypertension. Continue current blood pressure regimen. 7. Pancreatic insufficiency. Continue Creon. Dictated By: SIMONA CORONA/PURVI Conf#: [id number] DID#: [id number]
[2016-05-23 14:35] LABS: MICROALBUMIN 0.3 mg/dL
--- NOTE | 2016-05-23 15:27 | PN ---
Date/Time of Note Date/Time of Note DATE: 05/23/16 TIME: 15:25 Assessment/Plan VTE Prophylaxis VTE Prophylaxis Intervention: other Lines/Catheters IV [facility]ter Type (from [facility] Peripheral IV Urinary Cath still in place: No Assessment/Plan Assessment/Plan 1. acute gastroenteritis, improving, still with diarrhea but less, imodium once 2. Non-anion gap metabolic acidosis secondary to diarrhea Nephrology consultation appreciated, continue IV fluids, nephro may start a bicarb drip if indicated 3. History of abdominal cancer, as well as lung cancer. Status post surgery, chemo and radiation in the past. No acute issues. 4. Prophylaxis Ambulation Subjective 24 Hr Interval Summary Free Text/Dictation less but still has diarrhea. Exam/Review of Systems Vital Signs Vitals Vital Signs Date Time Temp Pulse Resp B/P Pulse Ox O2 Delivery O2 Flow Rate FiO2 05/22/16 22:30 98.3 79 18 133/85 97 05/20/16 09:38 Room Air Intake and Output 05/22/16 05/22/16 05/23/16 15:00 23:00 07:00 Intake Total 900 ml 1170 ml 1210 ml Balance 900 ml 1170 ml 1210 ml Exam Constitutional: alert, oriented, well developed Psych: nl mood/affect, no complaints Head: atraumatic, normocephalic Eyes: EOMI, PERRL, nl conjunctiva, nl lids, nl sclera ENMT: nl external ears & nose, nl lips & teeth, nl nasal mucosa & septum Neck: non-tender, supple Respiratory: clear to auscultation, normal air movement, No congested cough, No crackles/rales, No diminished breath sounds, No intercostal retraction, No labored breathing, No other, No respirations, No tactile fremitus, No wheezing Cardiovascular: nl pulses, regular rate and rhythm, No S3, No S4, No bruits, No diastolic murmur, No edema, No gallop, No irregular rhythm, No jugular venous distention (JVD), No murmurs/extra sounds, No other, No rub, No systolic murmur Gastrointestinal: nl liver, spleen, soft, No ascites, No bowel sounds, No distended, No firm, No hepatomegaly, No mass , No other, No rebound or guarding, No splenomegaly, No surgical scars Musculoskeletal: nl extremities to inspection Extremities: normal pulses, No calf tenderness, No clubbing, No cyanosis, No edema, No other, No palpable cord, No pitting pedal edema, No tenderness Neurological: LOBBYIST II-XII intact, nl mental status, nl speech, nl strength Skin: nl turgor Lymph: nl lymph nodes Results Result Diagram: 05/23/16 0500 05/23/16 0500 Results 24 hrs Laboratory Tests Test 05/22/16 15:48 05/23/16 05:00 Sodium Level 139 139 Potassium Level 3.9 3.7 Chloride Level 115 H 118 H Carbon Dioxide Level 18 L 18 L Anion Gap 10 7 L Blood Urea Nitrogen 3 L 5 L Creatinine 0.91 0.81 Glucose Level 96 75 Calcium Level 7.4 L 7.1 L White Blood Count 3.7 L Red Blood Count 3.05 L Hemoglobin 9.6 L Hematocrit 29.0 L Mean Corpuscular Volume 95.1 Mean Corpuscular Hemoglobin 31.5 Mean Corpuscular Hemoglobin Concent 33.1 Red Cell Distribution Width 12.5 Platelet Count 153 Mean Platelet Volume 10.6 H Neutrophils % 75.7 Lymphocytes % 15.1 Monocytes % 8.9 Eosinophils % 0.0 Basophils % 0.0 Nucleated Red Blood Cells % 0.0 Neutrophils # 2.8 Lymphocytes # 0.6 L Monocytes # 0.3 Eosinophils # 0.0 Basophils # 0.0 Nucleated Red Blood Cells # 0.0 Phosphorus Level 2.8 Magnesium Level 1.9 Total Bilirubin 0.0 L Direct Bilirubin 0.00 Indirect Bilirubin 0.0 Aspartate Amino Transf (AST/SGOT) 69 H Alanine Aminotransferase (ALT/SGPT) 44 Alkaline Phosphatase 91 Total Protein 3.9 L Albumin 1.6 L Globulin 2.30 Albumin/Globulin Ratio 0.69 Medications Medications Current Medications Ondansetron HCl (Zofran Inj) 4 mg Q6H PRN IV NAUSEA AND/OR VOMITING; Start 05/20 at 11:30 Morphine Sulfate (morphine) 2 mg Q4H PRN IV SEVERE PAIN LEVEL 7-10 Last administered on 05/22/16 08:19; Admin Dose 2 MG; Start 05/20/16 at 11:30 Zolpidem Tartrate (Ambien) 5 mg QHS PRN PO SLEEP; Start 05/20/16 at 11:30 Benazepril HCl 10 mg 10 mg DAILY PO Last administered on 05/21/16 09:04; Admin Dose 10 MG; Start 05/20/16 at 13:00; Status Future Hold Sodium Bicarbonate/ Sodium Chloride (Na Bicarb/02/20 NS) 1,075 ml @ 50 mls/hr [id number] IV Last administered on 05/23/16 08:48; Admin Dose 50 MLS/HR; Start 05/21/16 at 19:00 RHODA KYLE MD May 23, 2016 15:27
[2016-05-23] MEDS ORDERED: LOPERAMIDE 2 MG CAP PO ONE (15:30)
[2016-05-23 20:12] VITALS: BP 166/94; RESP 16
[2016-05-23 22:12] VITALS: BP 132/84
[2016-05-24] MEDS: SODIUM BICARBONATE (IV ADD) 75 MEQ in SOD CHLORIDE 0.45% 1,000 ML IV SCH (03:53)
[2016-05-24 06:14] LABS: POTASSIUM 3.8 mmol/L (3.5-5.1)
[2016-05-24 06:17] LABS: CREATININE 0.76 mg/dl (0.44-1.00)
[2016-05-24 06:18] LABS: CALCIUM 7.1 mg/dl (8.4-10.2); MAGNESIUM 1.8 mg/dl (1.7-2.5); PHOSPHORUS 2.9 mg/dl (2.5-4.9)
[2016-05-24 07:57] VITALS: BP 131/79; RESP 16
[2016-05-24] MEDS: CREON (12k-38k-60k) 1 CAP PO SCH ×3 (09:08→17:13)
[2016-05-24] MEDS ORDERED: POTASSIUM CHLORIDE (SR) 20 MEQ TAB PO STA (12:44)
[2016-05-24] MEDS ORDERED: SOD CHLORIDE 0.9% 1,000 ML IV SCH (13:00)
--- NOTE | 2016-05-24 13:28 | PN ---
DATE: 05/24/2016 SUBJECTIVE: The patient is stable, continues to have diarrhea, but improving. No other acute event s noted. No hemoptysis, hematemesis, or hematochezia. OBJECTIVE: VITAL SIGNS: Blood pressure is 131/79, respiratory rate 16, pulse 80, temperature 98.2. HEENT: Head is normocephalic. NECK: Supple. HEART: Regular rate. LUNGS: Show diminished breath sounds at the base. ABDOMEN: Soft, nontender to palpation, no rebound or guarding. EXTREMITIES: Negative for clubbing, cyanosis, no edema. DERMATOLOGIC: No rashes. MUSCULOSKELETAL: No joint effusions. NEUROLOGIC: No change in exam. MEDICATIONS: The patient's medications have been reviewed. LABORATORY DATA: Shows sodium 138, potassium 3.8, hematocrit 115, BUN 5, creatinine 0.76. ASSESSMENT AND PLAN: 1. Hyperchloremic metabolic acidosis secondary to gastrointestinal loss. The patient is currently on a bicarbonate drip. The patient's bicarbonate levels have been improving. At this point, will d iscontinue bicarbonate drip and monitor. 2. Hypokalemia, replete potassium chloride. 3. Anemia of chronic disease. Continue to monitor H and H levels. 4. Acute diarrhea secondary to colitis. Continue medical management. Continue to monitor. 5. History of gastric cancer status post Whipple's procedure. 6. History of lung cancer status post lobectomy. 7. Hypertension. Continue current blood pressure regimen. 8. Pancreatic insufficiency. Continue Creon. Dictated By: SIMONA CORONA/PURVI Conf#: [id number] DID#: [id number]
--- NOTE | 2016-05-24 16:07 | PN ---
Date/Time of Note Date/Time of Note DATE: 05/24/16 TIME: 16:06 Assessment/Plan VTE Prophylaxis VTE Prophylaxis Intervention: other Lines/Catheters [facility] Peripheral IV Urinary Cath still in place: No Assessment/Plan Assessment/Plan 1. acute gastroenteritis, improving, still with diarrhea but less, imodium once 2. Non-anion gap metabolic acidosis secondary to diarrhea Nephrology consultation appreciated, continue IV fluids, nephro may start a bicarb drip if indicated 3. History of colon cancer, as well as lung cancer. Status post surgery, chemo and radiation in the past. No acute issues. 4. Prophylaxis Ambulation Subjective 24 Hr Interval Summary Free Text/Dictation less but still with multiple BMs Exam/Review of Systems Vital Signs Vitals Vital Signs Date Time Temp Pulse Resp B/P Pulse Ox O2 Delivery O2 Flow Rate FiO2 05/24/16 07:57 98.2 80 16 131/79 100 05/20/16 09:38 Room Air Intake and Output 05/23/16 05/23/16 05/24/16 15:00 23:00 07:00 Intake Total 225 ml 800 ml 750 ml Balance 225 ml 800 ml 750 ml Exam Constitutional: alert, oriented Psych: nl mood/affect, no complaints Head: atraumatic, normocephalic Eyes: EOMI, PERRL, nl conjunctiva, nl lids ENMT: nl external ears & nose, nl lips & teeth, nl nasal mucosa & septum Neck: non-tender, supple Respiratory: clear to auscultation, normal air movement, No congested cough, No crackles/rales, No diminished breath sounds, No intercostal retraction, No labored breathing, No other, No respirations, No tactile fremitus, No wheezing Cardiovascular: nl pulses, regular rate and rhythm, No S3, No S4, No bruits, No diastolic murmur, No edema, No gallop, No irregular rhythm, No jugular venous distention (JVD), No murmurs/extra sounds, No other, No rub, No systolic murmur Gastrointestinal: nl liver, spleen, non-tender, soft, No ascites, No bowel sounds, No distended, No firm, No hepatomegaly, No mass , No other, No rebound or guarding, No splenomegaly, No surgical scars, No tender Musculoskeletal: nl extremities to inspection Extremities: normal pulses, No calf tenderness, No clubbing, No cyanosis, No edema, No other, No palpable cord, No pitting pedal edema, No tenderness Neurological: GEODETIC TECHNICIAN II-XII intact, nl mental status, nl speech, nl strength Skin: nl turgor Lymph: nl lymph nodes Results Result Diagram: 05/23/16 0500 05/24/16 0435 Results 24 hrs Laboratory Tests Test 05/24/16 04:35 Sodium Level 137 Potassium Level 3.8 Chloride Level 115 H Carbon Dioxide Level 18 L Anion Gap 8 Blood Urea Nitrogen 5 L Creatinine 0.76 Glucose Level 71 Calcium Level 7.1 L Phosphorus Level 2.9 Magnesium Level 1.8 Medications Medications Current Medications Ondansetron HCl (Zofran Inj) 4 mg Q6H PRN IV NAUSEA AND/OR VOMITING; Start 05/20 at 11:30 Morphine Sulfate (morphine) 2 mg Q4H PRN IV SEVERE PAIN LEVEL 7-10 Last administered on 05/22/16 08:19; Admin Dose 2 MG; Start 05/20/16 at 11:30 Zolpidem Tartrate (Ambien) 5 mg QHS PRN PO SLEEP; Start 05/20/16 at 11:30 Benazepril HCl 10 mg 10 mg DAILY PO Last administered on 05/21/16 09:04; Admin Dose 10 MG; Start 05/20/16 at 13:00; Status Future Hold Sodium Chloride (NS) 1,000 ml @ 40 mls/hr Q24H IV Last administered on 13:06; Admin Dose 40 MLS/HR; Start 05/24/16 at 13:00 Loperamide HCl (Imodium Cap) 2 mg BID PO ; Start 05/24/16 at 21:00 RHODA KYLE MD May 24, 2016 16:07
[2016-05-24] MEDS: LOPERAMIDE 2 MG CAP PO SCH (21:41)
[2016-05-25 06:49] LABS: POTASSIUM 4.3 mmol/L (3.5-5.1)
[2016-05-25 06:51] LABS: CREATININE 0.76 mg/dl (0.44-1.00)
[2016-05-25 06:52] LABS: CALCIUM 7.2 mg/dl (8.4-10.2); MAGNESIUM 1.8 mg/dl (1.7-2.5); PHOSPHORUS 3.2 mg/dl (2.5-4.9)
[2016-05-25 08:24] VITALS: BP 118/75; RESP 18
[2016-05-25] MEDS: CREON (12k-38k-60k) 1 CAP PO SCH ×2 (09:08→12:34)
[2016-05-25] MEDS: LOPERAMIDE 2 MG CAP PO SCH (09:08)
[2016-05-25] MEDS ORDERED: LOPE2CAP PO (15:21)
--- NOTE | 2016-05-25 15:30 | DS ---
Date/Time of Note Date/Time of Note DATE: 05/25/16 TIME: 15:23 Discharge Summary Admission/Discharge Info Admit Date/Time May 22, 2016 at 14:08 Discharge Date/Time Final Diagnosis 1. Acute on chronic diarrhea, noninfectious, imodium prn, follow up with PCP 2. Non-anion gap metabolic acidosis secondary to diarrhea, resolved 3. History of colon cancer, as well as lung cancer. Status post surgery, chemo and radiation in the past. No acute issues. Patient Condition: Stable Hospital Course 56 years old female with h/o lung cancer and colon cancer, status post surgery for both, as well as chemotherapy and radiation. She has been having intermittent diarrhea after colon surgery. Patient came in with two days of watery diarrhea without abdominal pain, no fever or chills, no nausea or vomiting. Stool C. Dfiff was negative. Diarrhea has improved with imodium. She will continue imodium as needed and follow up with PCP in one week. Patimichela terrell had severe non-AG metabolic acidosis that she needed bicarb iv. Hco3 has been normalized. Home Meds Active Scripts Loperamide Hcl* (Imodium*) 2 Mg Capsule, 2 MG PO Q6H Y for DIARRHEA for 30 Days , CAP MAX 16 mg/day Prov:RHODA KYLE MD 05/25/16 Reported Medications Ramipril (Ramipril) 2.5 Mg Capsule, 2.5 MG PO DAILY, CAP 05/20/16 Oasysn-Xvovbpkt-Hqgrpku* (Creon DR* 6,000) 6,000 L-19,000-30,000 Unit Capsule. , 1 CAP PO TID, CAP 01/09/14 Discontinued Reported Medications Ramipril (Ramipril) 1.25 Mg Capsule, 1.25 MG PO DAILY, CAP 06/11/15 Discontinued Scripts Ondansetron Hcl* (Zofran* ODT) 4 mg -ODT Tab.disper, 4 MG PO Q6 Y for NAUSEA AND /OR VOMITING, #10 TAB Prov:KELLEY THOMAS MD 06/11/15 Hydrocodone Bit-Acetaminophen* (Taberg*) 5-325 Mg Tab, 1 TAB PO Q6 Y for PAIN, # 12 TAB Prov:KELLEY THOMAS MD 06/11/15 Follow-up Plan follow up with PCP in one week Pending Labs Laboratory Tests Test 05/25/16 05:19 Sodium Level 138mmol/L (135-144) Potassium Level 4.3mmol/L (3.5-5.1) Chloride Level 113mmol/L (97-110) Carbon Dioxide Level 21mmol/L (21-31) Anion Gap 8 (8-16) Blood Urea Nitrogen 8mg/dl (7-20) Creatinine 0.76mg/dl (0.44-1.00) Glucose Level 75mg/dl (70-220) Calcium Level 7.2mg/dl (8.4-10.2) Phosphorus Level 3.2mg/dl (2.5-4.9) Magnesium Level 1.8mg/dl (1.7-2.5) RHODA KYLE MD May 25, 2016 15:30
--- NOTE | 2016-05-25 16:31 | CONS ---
Date/Time of Note Date/Time of Note DATE: 05/25/16 TIME: 16:29 Consult Date/Type/Reason Admit Date/Time May 22, 2016 at 14:08 Initial Consult Date Subjective The patient is stable, No acute events noted. No hemoptysis, hematemesis, or hematochezia. OBJECTIVE: HEENT: Head is normocephalic. NECK: Supple. HEART: Regular rate. LUNGS: Show diminished breath sounds at the base. ABDOMEN: Soft, nontender to palpation, no rebound or guarding. EXTREMITIES: Negative for clubbing, cyanosis, no edema. DERMATOLOGIC: No rashes. MUSCULOSKELETAL: No joint effusions. NEUROLOGIC: No change in exam. MEDICATIONS: The patient's medications have been reviewed. Objective Vital Signs Date Time Temp Pulse Resp B/P Pulse Ox O2 Delivery O2 Flow Rate FiO2 05/25/16 08:24 98.1 84 18 118/75 98 Intake and Output 05/24/16 05/24/16 05/25/16 15:00 23:00 07:00 Intake Total 375 ml 1040 ml 780 ml Balance 375 ml 1040 ml 780 ml Results/Medications Result Diagram: 05/23/16 0500 05/25/16 0519 Results 24 hrs Laboratory Tests Test 05/25/16 05:19 Sodium Level 138 Potassium Level 4.3 Chloride Level 113 H Carbon Dioxide Level 21 Anion Gap 8 Blood Urea Nitrogen 8 Creatinine 0.76 Glucose Level 75 Calcium Level 7.2 L Phosphorus Level 3.2 Magnesium Level 1.8 Medications Current Medications Ondansetron HCl (Zofran Inj) 4 mg Q6H PRN IV NAUSEA AND/OR VOMITING; Start 05/20 at 11:30 Morphine Sulfate (morphine) 2 mg Q4H PRN IV SEVERE PAIN LEVEL 7-10 Last administered on 05/22/16 08:19; Admin Dose 2 MG; Start 05/20/16 at 11:30 Zolpidem Tartrate (Ambien) 5 mg QHS PRN PO SLEEP; Start 05/20/16 at 11:30 Benazepril HCl 10 mg 10 mg DAILY PO Last administered on 05/21/16 09:04; Admin Dose 10 MG; Start 05/20/16 at 13:00; Status Future Hold Sodium Chloride (NS) 1,000 ml @ 40 mls/hr Q24H IV Last administered on 13:06; Admin Dose 40 MLS/HR; Start 05/24/16 at 13:00 Loperamide HCl (Imodium Cap) 2 mg BID PO Last administered on 05/25/16 09:08; Admin Dose 2 MG; Start 05/24/16 at 21:00 Assessment/Plan Chief Complaint/Hosp Course ASSESSMENT AND PLAN: 1. Hyperchloremic metabolic acidosis secondary to gastrointestinal loss. The patient is sp bicarbonate drip. The patient's bicarbonate levels have been improving and steady now off gtt. 2. Hypokalemia, repleted potassium chloride. 3. Anemia of chronic disease. Continue to monitor H and H levels. 4. Acute diarrhea secondary to colitis. Continue medical management. Continue to monitor. 5. History of gastric cancer status post Whipple's procedure. 6. History of lung cancer status post lobectomy. 7. Hypertension. Continue current blood pressure regimen. 8. Pancreatic insufficiency. Continue Creon. Problems: BERNABE CARROLL MD May 25, 2016 16:31
== END 2016-05-25 18:53 | disposition home or self-care (01) | DRG 392 ==
LOC: E/R 04:45 → PP2 09:07 → OBSVTOIN 05-22 14:08
PROVIDERS: ADMIT Internal Medicine; ATTEND Internal Medicine
DX: K52.9 Noninfective gastroenteritis and colitis, unspecified (principal); E87.0 Hyperosmolality and hypernatremia; E87.2 Acidosis; D63.8 Anemia in other chronic diseases classified elsewhere; A08.4 Viral intestinal infection, unspecified; I10 Essential (primary) hypertension; E87.8 Other disorders of electrolyte and fluid balance, not elsewhere classified; E86.0 Dehydration; Z85.038 Personal history of other malignant neoplasm of large intestine
CPT/HCPCS: 36415; 36600; 71010; 74177; 80048; 80053; 80061; 81001; 81003; 82043; 82803; 83036; 83605; 83690; 83735; 84100; 84155; 84300; 84436; 84479; 84484; 85025; 85610; 85730; 87040; 87045; 87075; 87086; 93005; G0378; J2270; J2405; J7030; Q9967

== ENCOUNTER 2016-07-18 16:24 | Inpatient (IN) | payer MEDICARE, OTHER ==
[~2016-07-18] VITALS: Ht 152.4 cm; Wt 40.6 kg
[~2016-07-18 16:24] MED LIST changes: -HYDR-3498 PO; +LOPE2CAP PO; -ONDA4TAB35 PO; -RAMI1.253 PO; +RAMI2.5C36 PO
[2016-07-18 16:32] VITALS: Ht 152.4 cm; Wt 40.6 kg
[2016-07-18] MEDS ORDERED: CEFEPIME 2GM/50 ML (PMX) 50 ML IVPB STA (17:13)
[2016-07-18] MEDS ORDERED: SODIUM CHLORIDE 0.9% 1L BAG IV* STA (17:13)
[2016-07-18] MEDS ORDERED: VANCOMYCIN 1 GM (PMX) 250 ML IVPB ONE (17:30)
[2016-07-18 17:48] LABS: ADD SCAN DIFF NO
[2016-07-18 17:50] LABS: HEMATOCRIT 23.4 % (37.0-47.0); HEMOGLOBIN 7.7 g/dl (12.0-16.0); LYMPHOCYTES # 0.9 10^3/ul (0.8-2.9); LYMPHOCYTES % 17.4 % (15.0-51.0); MEAN CORPUSCULAR HEMOGLOBIN 30.6 pg (29.0-33.0); MEAN CORPUSCULAR HGB CONC 32.9 g/dl (32.0-37.0); MEAN CORPUSCULAR VOLUME 92.9 fl (82.0-101.0); MEAN PLATELET VOLUME 10.7 fl (7.4-10.4); MONOCYTE # 0.7 10^3/ul (0.3-0.9); MONOCYTES % 12.8 % (0.0-11.0); NEUTROPHIL # 3.7 10^3/ul (1.6-7.5); NEUTROPHILS % 69.4 % (39.0-77.0); PLATELET COUNT 124 10^3/UL (140-415); RED BLOOD COUNT 2.52 10^6/ul (4.20-5.40); RED CELL DISTRIBUTION WIDTH 14.3 % (11.5-14.5); WHITE BLOOD COUNT 5.4 10^3/ul (4.8-10.8)
[2016-07-18 17:56] LABS: ADD UMIC NO; URINE BILIRUBIN (Dip) NEGATIVE (NEGATIVE); URINE BLOOD (Dip) NEGATIVE (NEGATIVE); URINE COLOR LT. YELLOW (YELLOW); URINE GLUCOSE (Dip) NEGATIVE (NEGATIVE); URINE KETONES (Dip) NEGATIVE (NEGATIVE); URINE LEUKOCYTE ESTERASE (Dip) NEGATIVE (NEGATIVE); URINE NITRITE (Dip) NEGATIVE (NEGATIVE); URINE TOTAL PROTEIN (Dip) NEGATIVE (NEGATIVE); URINE UROBILINOGEN (Dip) 0.2 E.U./dL (0.1-1.0)
[2016-07-18 18:06] LABS: INR 1.37; PARTIAL THROMBOPLASTIN TIME 32.6 Sec (25.0-35.0); PROTIME 16.9 Sec (12.2-14.2); PT RATIO 1.3
--- NOTE | 2016-07-18 18:11 | RADRPT ---
PROCEDURE: XR Chest. CLINICAL INDICATION: chest pain TECHNIQUE: Single frontal view of the chest was obtained COMPARISON: 05/20/2016 FINDINGS: The heart and mediastinum are within normal limits. There is a right chest wall port in place. There are postsurgical changes of the right lower chest. There is right lower lobe scarring. There is no focal infiltrate. There is no pleural effusion or pneumothorax. RPTAT: AA IMPRESSION: No acute disease. Postsurgical changes of the right lower chest with scarring. .Aubrey Jones MD, MD Date Time Electronically viewed and signed by .Aubrey Jones MD, MD on 07/18/2016 18:11 .S/
[2016-07-18] MEDS ORDERED: SOD CHLORIDE 0.9% 250 ML IV ONE (18:14)
[2016-07-18 18:20] LABS: CHLORIDE 116 mmol/L (97-110); SODIUM 136 mmol/L (135-144)
[2016-07-18 18:22] LABS: ANION GAP 9 (8-16); ASPARTATE AMINO TRANSFERASE 59 IU/L (15-46); BILIRUBIN,INDIRECT 0.2 mg/dl (0-1.1); BILIRUBIN,TOTAL 0.2 mg/dl (0.2-1.3); CARBON DIOXIDE 16 mmol/L (21-31); CREATININE 0.91 mg/dl (0.44-1.00)
[2016-07-18 18:23] LABS: ALANINE AMINOTRANSFERASE 37 IU/L (13-69); ALBUMIN 3.6 g/dl (3.3-4.9); ALBUMIN/GLOBULIN RATIO 2.11; ALKALINE PHOSPHATASE 71 IU/L (42-121); BLOOD UREA NITROGEN 11 mg/dl (7-20); CALCIUM 8.1 mg/dl (8.4-10.2); GLUCOSE 149 mg/dl (70-220); TOTAL PROTEIN 5.3 g/dl (6.1-8.1)
[2016-07-18 18:55] LABS: TROPONIN-I < 0.012 ng/ml (0.00-0.12)
--- NOTE | 2016-07-18 19:55 | ERA ---
ER Documentation Chief Complaint Date/Time DATE: 07/18/16 TIME: 19:52 Chief Complaint FEVER INTERMITTENT X 1 1/2 WEEKS , LOSS BALANCE, ON TPN, HX CA X 2 HPI Patient is a 56-year-old female with stomach cancer and previous colitis who presents with fevers. The patient has had fever off and on for the past 3 weeks. She was on 7 days of antibiotics for a UTI and finished yesterday. However she is unable to swallow and having pain in her tongue. She also has cracks in her fingers. She finished antibiotics yesterday but was still having fever. Upon review of old medical records this is the patient's 10th visit to the ER since 2007. Her primary doctor is Dr. Bowden. ROS All systems reviewed and are negative except as per history of present illness. Medications Home Meds Active Scripts Loperamide Hcl* (Imodium*) 2 Mg Capsule, 2 MG PO Q6H Y for DIARRHEA for 30 Days , CAP MAX 16 mg/day Prov:RHODA KYLE MD 05/25/16 Reported Medications Ramipril (Ramipril) 2.5 Mg Capsule, 2.5 MG PO DAILY, CAP 05/20/16 Jiwter-[place]* (Creon * 6,000) 6,000 L-19,000-30,000 Unit Capsule. , 1 CAP PO TID, CAP 01/09/14 Allergies Allergies: Coded Allergies: No Known Allergy (Unverified , 05/20/16) PMhx/Soc Anesthesia Reaction: No Hx Neurological Disorder: Yes ([place] Palsy) Hx Respiratory Disorders: No Hx Cardiac Disorders: Yes (Fast HR) Hx Psychiatric Problems: No Hx Alcohol Use: No Hx Substance Use: No Hx Tobacco Use: No Smoking Status: Never smoker FmHx Family History: No diabetes Physical Exam Vitals Vital Signs Date Time Temp Pulse Resp B/P Pulse Ox O2 Delivery O2 Flow Rate FiO2 07/18/16 18:42 88 17 126/84 99 Room Air 07/18/16 18:16 98.0 07/18/16 17:42 Nasal Cannula 2 07/18/16 16:32 99.6 101 20 129/78 99 Physical Exam Const: Moderate distress Head: Atraumatic Eyes: Normal Conjunctiva ENT: Normal External Ears, Nose and Mouth. Neck: Full range of motion..~ No meningismus. Resp: Clear to auscultation bilaterally Cardio: Regular rate and rhythm, no murmurs Abd: Soft, diffuse tenderness to palpation without rebound or guarding Skin: Pale skin Back: No midline or flank tenderness Ext: No cyanosis, or edema Neur: Awake and alert Psych: Normal Mood and Affect Result Diagram: 07/18/16 1740 07/18/16 174 Results 24 hrs Laboratory Tests Test 07/18/16 17:40 07/18/16 17:50 07/18/16 18:45 White Blood Count 5.410^3/ul Red Blood Count 2.5210^6/ul Hemoglobin 7.7g/dl Hematocrit 23.4% Mean Corpuscular Volume 92.9fl Mean Corpuscular Hemoglobin 30.6pg Mean Corpuscular Hemoglobin Concent 32.9g/dl Red Cell Distribution Width 14.3% Platelet Count 37917^3/UL Mean Platelet Volume 10.7fl Neutrophils % 69.4% Lymphocytes % 17.4% Monocytes % 12.8% Eosinophils % 0.0% Basophils % 0.0% Nucleated Red Blood Cells % 0.0/100WBC Neutrophils # 3.710^3/ul Lymphocytes # 0.910^3/ul Monocytes # 0.710^3/ul Eosinophils # 0.010^3/ul Basophils # 0.010^3/ul Nucleated Red Blood Cells # 0.010^3/ul Prothrombin Time Pending Prothrombin Time Ratio 1.3 INR International Normalized Ratio 1.37 Activated Partial Thromboplast Time 32.6Sec Sodium Level 136mmol/L Potassium Level 5.0mmol/L Chloride Level 116mmol/L Carbon Dioxide Level 16mmol/L Anion Gap 9 Blood Urea Nitrogen 11mg/dl Creatinine 0.91mg/dl Glucose Level 149mg/dl Lactic Acid Level 3.6mmol/L 2.6mmol/L Calcium Level 8.1mg/dl Total Bilirubin 0.2mg/dl Direct Bilirubin 0.00mg/dl Indirect Bilirubin 0.2mg/dl Aspartate Amino Transf (AST/SGOT) 59IU/L Alanine Aminotransferase (ALT/SGPT) 37IU/L Alkaline Phosphatase 71IU/L Troponin I < 0.012ng/ml Total Protein 5.3g/dl Albumin 3.6g/dl Globulin 1.70g/dl Albumin/Globulin Ratio 2.11 Urine Color LT. YELLOW Urine Clarity CLEAR Urine pH 7.0 Urine Specific Dat[place] <=1.005 Urine Ketones NEGATIVE Urine Nitrite NEGATIVE Urine Bilirubin NEGATIVE Urine Urobilinogen 0.2 E.U./dL Urine Leukocyte Esterase NEGATIVE Urine Hemoglobin NEGATIVE Urine Glucose NEGATIVE% Urine Total Protein NEGATIVE Current Medications Medications (Trade) Dose Ordered Sig/Priscila Route PRN Reason Start Time Stop Time Status Last Admin Dose Admin Sodium Chloride 1240 ml 1,240 ml BOLUS OVER 2 HOURS STAT IV* 07/18/16 17:13 07/18/16 17:14 DC 07/18/16 18:03 Cefepime HCl 50 ml @ 100 mls/hr ONCE STAT IVPB 07/18/16 17:13 07/18/16 17:42 DC 07/18/16 18:03 Vancomycin HCl 250 ml @ 125 mls/hr ONCE ONCE IVPB 07/18/16 17:30 07/18/16 19:29 DC 07/18/16 19:08 Sodium Chloride (NS) 250 ml @ 0 mls/hr Q0M ONCE IV 07/18/16 18:14 07/18/16 18:15 DC Ondansetron HCl (Zofran Inj) 4 mg BRIDGE ORDER PRN IV NAUSEA AND/OR VOMITING 07/18/16 20:00 07/19/16 19:59 Acetaminophen (Tylenol Tab) 650 mg ER BRIDGE PRN PO MILD PAIN/FEVER 07/18/16 20:00 07/19/16 19:59 Procedures/MDM EKG read by me: Rate/Rhythm: Sinus tachycardia Intervals: Normal Impression: Sinus tachycardia without ischemia Chest x-ray shows no pneumonia or pneumothorax per radiology. Admit MDM: Patient's infectious symptoms have not stabilized and the patient is at risk of rapid decompensation. The patient will be admitted for careful hydration, antibiotic therapy, and infectious source control. Severe Sepsis criteria: Infectious source: Unclear at this time End organ damage indicated by: Lactate greater than 2 Sepsis Management: Time of recognition of sepsis: 17:40 Within 3 hours of recognition: Blood cultures x 2 before broad-spectrum antibiotics: Yes 30 ml/kg NS bolus Completed Initial lactate 3.6 Repeat lactate 2.4 Time of recognition of septic shock: No septic shock Septic Shock Assessment: Any lactic acid > 4.0 No Persistent hypotension (SBP < 90 or 40 mmHg drop, MAP < 65) despite 30 mL/kg IV fluid bolus No Volume Re-assessment for Septic Shock (post 30 ml/kg bolus): No septic shock at this time Persistent Hypotension Treatment: Comfort care No Central line Not Required Vasopressor started Not required I considered further perfusion assessment with CVP measurement, SCVO2, bedside ultrasound volume assessment, passive leg raise, trial of further fluid bolus. And proceeded with 30 ml/kg fluid bolus of NSS, broad spectrum antibiotics, and admission. Accepting Care Team Current data and ongoing care discussed. Admitting Physician: Dr. Che from the panel team Shale Planer Operator(s): None Outstanding Data: Culture results Critical Care: Critical care time 35 minutes excluding all billable procedures Emergent fluid management while maintaining close respiratory support. Provision of immediate and broad-spectrum antibiotic therapy. Simultaneous assessment for possible sources in order to direct targeted therapy. Consideration for invasive and chemical support to prevent cardiopulmonary collapse. Departure Diagnosis: Primary Impression: Severe sepsis Additional Impressions: Fever Qualified Code: R50.9 - Fever, unspecified fever cause Anemia Qualified Code: D64.9 - Anemia, unspecified type Condition: Serious MICHELLE LYNNE MD July 18, 2016 19:55
[2016-07-18] MEDS ORDERED: NACL 0.9% 3 ML SYG IV SCH (20:00)
[2016-07-18] MEDS ORDERED: ACETAMINOPHEN 325 MG TAB PO PRN ×2 (20:00)
[2016-07-18] MEDS ORDERED: LORAZEPAM 2 MG INJ IV PRN (20:00)
[2016-07-18] MEDS ORDERED: ONDANSETRON 4 MG INJ IV PRN ×2 (20:00)
[2016-07-18] MEDS ORDERED: LOPERAMIDE 2 MG CAP PO PRN (20:00)
[2016-07-18] MEDS ORDERED: morphine 2 MG INJ IV PRN (20:00)
[2016-07-18] MEDS ORDERED: SOD CHLORIDE 0.9% 100 ML ONE (20:23)
[2016-07-18] MEDS ORDERED: IOHEXOL 300MG/ML 150 ML BTL ONE (20:23)
[2016-07-18 20:31] VITALS: TEMP 98.3
[2016-07-18 20:55] VITALS: BP 122/72; RESP 18
[2016-07-18] MEDS ORDERED: NON-FORMULARY/PATIENT OWN MED (Lipase-Protease-Amylase* (Creon DR* 6,000) 1 CAP) PO SCH (21:00)
[2016-07-18 21:05] VITALS: PULSE 72
--- NOTE | 2016-07-18 22:52 | HP ---
Date/Time of Note Date/Time of Note DATE: 07/18/16 TIME: 22:52 Assessment/Plan VTE Prophylaxis VTE Prophylaxis Intervention: SCD's Assessment/Plan Chief Complaint/Hosp Course This is a 56-year-old female being admitted to the telemetry floor for: #1 Unexplained fevers: At the current time the source of the infection is not presently known. She was being treated for UTI however her UA came back negative. Will order urine culture and blood cultures. Will also order a CAT scan of the abdomen and pelvis. She received Vanco and cefepime in the ED will continue the current regimen. Will consult infectious disease #2 symptomatic anemia: Patient has hemoglobin of 7.7 she denies any no overt bleeding at this time. She received 2 units of packed red blood cell transfusions in the ED. Will continue to follow hemoglobin and hematocrit. Will check iron studies. Will check fecal occult blood. #3 lactic acidosis: Patient initially had a lactate level of 3.6 which subsequently improved through her hospital course. Continue IV fluid hydration and continue antibiotics. We will continue to trend lactate as well as CMP. #4 Hypertension: Stable, continue home ramipril #5 coronary artery disease: Stable continue to monitor. #6 DVT and GI prophylaxis: We will hold chemical anticoagulation at this time secondary to symptomatic anemia. Will apply SCDs, Protonix Problems: HPI/ROS Admit Date/Time Admit Date/Time July 18, 2016 at 19:39 Hx of Present Illness Chief complaint: Fevers 3 weeks Patient is a 56-year-old female with stomach cancer and previous colitis who presents with fevers. The patient has had fever off and on for the past 3 weeks. She was on 7 days of antibiotics for a UTI and finished yesterday. She finished antibiotics yesterday for her UTI but was still having fevers. Patient states that she does notice urinary frequency and at times has been having symptoms of dysuria. Overall patient has also been feeling weak. Allergies: NKDA Medications: See ENRIQUE ALEXANDER Const: As per HPI Eyes : No pain discharge or redness or change in visual acuity ENT: No pain, sore throat, congestion, congestion, dysphagia or discharge Respiratory: No shortness of breath, cough, sputum, wheezing, or pleuritic pain Cardiovascular: No chest pain, palpitation, PND, or edema GI : no change in appetite, abdominal pain, nausea, vomiting, diarrhea, constipation, or change in the color his stool Genitourinary: As per HPI Musculoskeletal: No joint pain, back pain, neck pain, restricted range of motion in neck or joints Skin: No rash, bruising or hives Neuro: No headache, dizziness, syncope, seizure, focal weakness Endocrine: No polyuria, polydipsia, temperature intolerance Psych: No hallucination, depression, anxiety or suicidal ideation PMH/Family/Social Past Medical History Stomach cancer, lung cancer, hypertension Past Surgical History Tubal ligation, stomach surgery, lungs are Family History Significant Family History: heart disease (Mom) Social History Alcohol Use: none Smoking Status: Never smoker Drug Use: none Exam/Review of Systems Vital Signs Vitals Vital Signs Date Time Temp Pulse Resp B/P Pulse Ox O2 Delivery O2 Flow Rate FiO2 07/18/16 20:55 98.0 90 18 122/72 99 07/18/16 20:31 Room Air 07/18/16 17:42 2 Exam Exam General: This is a 56-year-old female who is laying in bed in no acute distress however patient does appear lethargic and weak. HEENT: Atraumatic, normocephalic. The pupils are equal, round and reactive. Extraocular motor are intact Neck: Supple with full range of motion. No rigidity or meningismus Chest: Nontender Lungs: Clear to auscultation bilaterally no crackles rales or wheezing Heart: Normal S1-S2, Regular rhythm and rate. Abdomen: Soft , nontender, nondistended , bowel sounds are present. No guarding no rebound tenderness , No masses or organomegaly. No costovertebral temporal angle mass Extremities: Normal to inspection, no edema no cyanosis Neurologic: Normal mental status, speech normal, cranial nerves II through XII are intact, motor and sensory are intact, no focal weakness Additional Comments PROCEDURE: XR Chest. CLINICAL INDICATION: chest pain TECHNIQUE: Single frontal view of the chest was obtained COMPARISON: 05/20/2016 FINDINGS: The heart and mediastinum are within normal limits. There is a right chest wall port in place. There are postsurgical changes of the right lower chest. There is right lower lobe scarring. There is no focal infiltrate. There is no pleural effusion or pneumothorax. RPTAT: AA IMPRESSION: No acute disease. Postsurgical changes of the right lower chest with scarring. .Aubrey Jones MD, MD Date Time Electronically viewed and signed by .Aubrey Jones MD, on 07/18/2016 18: 11 EKG Rate/Rhythm: Sinus tachycardia Intervals: Normal As per ED physician documentation Labs Result Diagram: 07/18/16 1740 07/18/16 1740 Medications Medications Current Medications Sodium Chloride (NS) 1,000 ml @ 60 mls/hr [id number] IV ; Start 07/18/16 at 21:00 Lorazepam (Ativan) 0.5 mg Q6H PRN IV ANXIETY; Start 07/18/16 at 20:00 Ondansetron HCl (Zofran Inj) 4 mg Q6H PRN IV NAUSEA AND/OR VOMITING; Start at 20:00 Acetaminophen (Tylenol Tab) 650 mg Q6H PRN PO PAIN LEVEL 1-3 OR FEVER; Start at 20:00 Morphine Sulfate (morphine) 2 mg Q4H PRN IV PAIN LEVEL 7-10; Start 07/18/16 at 20:00 Docusate Sodium (Colace) 100 mg Q12 PO ; Start 07/18/16 at 21:00 Bisacodyl (Dulcolax) 5 mg DAILY PO ; Start 07/19/16 at 09:00 Pantoprazole (Protonix Iv) 40 mg DAILY@06 IV ; Start 07/19/16 at 06:00 Loperamide HCl (Imodium Cap) 2 mg Q6H PRN PO DIARRHEA; Start 07/18/16 at 20:00 Miscellaneous Information 1 cap TID PO ; Start 07/18/16 at 21:00; Status UNV Benazepril HCl (Lotensin) 10 mg DAILY PO ; Start 07/19/16 at 09:00 RASHARD EDGAR July 18, 2016 22:52
[2016-07-18 23:58] VITALS: BP 112/70; RESP 18
[2016-07-19] VITALS (11 sets, daily range): BP systolic 120–159; BP diastolic 70–87; PULSE 58–75; RESP 18
[2016-07-19] MEDS: SOD CHLORIDE 0.9% 1,000 ML IV SCH ×3 (00:19→21:14)
[2016-07-19] MEDS ORDERED: VANCOMYCIN IV PER PHARMACY XX SCH (00:30)
[2016-07-19] MEDS ORDERED: PANTOPRAZOLE 40 MG INJ IV SCH (06:00)
[2016-07-19] MEDS ORDERED: VANCOMYCIN 500MG/NS (PMX) 100 ML IVPB SCH (07:00)
[2016-07-19 08:03] LABS: ADD SCAN DIFF NO
[2016-07-19 08:10] LABS: ABNORMAL IP MESSAGE 1; HEMATOCRIT 33.1 % (37.0-47.0); HEMOGLOBIN 11.1 g/dl (12.0-16.0); LYMPHOCYTES # 0.8 10^3/ul (0.8-2.9); LYMPHOCYTES % 30.1 % (15.0-51.0); MEAN CORPUSCULAR HEMOGLOBIN 29.5 pg (29.0-33.0); MEAN CORPUSCULAR HGB CONC 33.5 g/dl (32.0-37.0); MEAN PLATELET VOLUME 12.2 fl (7.4-10.4); MONOCYTE # 0.5 10^3/ul (0.3-0.9); MONOCYTES % 17.5 % (0.0-11.0); NEUTROPHIL # 1.4 10^3/ul (1.6-7.5); RED BLOOD COUNT 3.76 10^6/ul (4.20-5.40); RED CELL DISTRIBUTION WIDTH 15.5 % (11.5-14.5); WHITE BLOOD COUNT 2.7 10^3/ul (4.8-10.8)
[2016-07-19 08:27] LABS: IRON 62 ug/dl (35-150)
[2016-07-19 08:35] LABS: ALBUMIN 2.8 g/dl (3.3-4.9); ALBUMIN/GLOBULIN RATIO 1.4; BILIRUBIN,INDIRECT 0.5 mg/dl (0-1.1); BILIRUBIN,TOTAL 0.5 mg/dl (0.2-1.3); CALCIUM 7.7 mg/dl (8.4-10.2); CREATININE 0.71 mg/dl (0.44-1.00); MAGNESIUM 2.1 mg/dl (1.7-2.5); POTASSIUM 4.4 mmol/L (3.5-5.1); TOTAL PROTEIN 4.8 g/dl (6.1-8.1)
[2016-07-19 08:36] LABS: TOTAL IRON BINDING CAPACITY 118 ug/dl (241-421)
[2016-07-19] MEDS ORDERED: CEFEPIME 1GM/50 ML (PMX) 50 ML IVPB SCH (09:00)
[2016-07-19] MEDS: BISACODYL (EC) 5 MG TAB PO SCH (09:00)
[2016-07-19] MEDS: DOCUSATE SODIUM 100 MG CAP PO SCH ×3 (09:00→20:04)
[2016-07-19] MEDS: CREON (12k-38k-60k) 1 CAP PO SCH ×3 (09:22→21:00)
[2016-07-19] MEDS: BENAZEPRIL 10 MG TAB PO SCH (09:23)
[2016-07-19 10:28] LABS: PLATELET COUNT 117 10^3/UL (140-415)
--- NOTE | 2016-07-19 10:43 | PN ---
Date/Time of Note Date/Time of Note DATE: 07/19/16 TIME: 10:32 Assessment/Plan VTE Prophylaxis VTE Prophylaxis Intervention: SCD's Lines/Catheters IV Catheter Type (from [facility]): Peripheral IV Assessment/Plan Assessment/Plan 56 yo F with pmhx gastric ca sp partial gastrectomy/xrt/chemo presents with 3 weeks fo subjective fevers, found to be objectively febrile in oncologist's office yesterday. Pt recently treated for ?UTI? at oncologist's office. Source of fever unclear. Infectious workup still in process. UA unremarkable and culture negative. Blood cultures in process. Given pt with port that's still being used, risk of bacteremia. CT scan last month reportedly unremarkable. Of note, pt also with rising CEA. Consider malignacy related? Though imaging negative as noted before PLAN STOP EMPIRIC ABX. No current evidence of hemodynamic compromise or sepsis. Since admission no objective evidence of patient meeting SIRS criteria check CT C/A/P check HIV status await further culture results SCDs general diet Subjective 24 Hr Interval Summary Free Text/Dictation I called pt's oncologist's office (Dr Tsai in [place]) for collateral. Per them , she complained of feeling hot for the past 2-3 weeks, it was determined she "had an infection" Also is getting regular albumin infusions which she has been on since June 26. Port has been functioning well. Last MD visit July 11 (stomach ca: stage 2 gastric ca sp partial gastrectomy 2002, sp chem and XRT). Noted to have rising CEA. Noted to have systemic swelling. CT May C/A/P no evidence of disease recurrence Last week pt came in said she had been feeling warm. She was prescribed 7 days of levaquin 500 mg for a possible UTI, based on a UA (results unknown, culture was not done). She then returned to their office yesterday her temperature was 97.1 on forehead but hand/chest temperature was 103.2. Talking more with the patient, she has not been checking her temperature at home. Also complains of occassional L side pain. Exam/Review of Systems Vital Signs Vitals Vital Signs Date Time Temp Pulse Resp B/P Pulse Ox O2 Delivery O2 Flow Rate FiO2 07/19/16 09:25 62 07/19/16 07:35 97.9 18 159/86 98 5/30/17 20:31 Room Air 07/18/16 17:42 2 Intake and Output 07/18/16 07/18/16 07/19/16 15:00 23:00 07:00 Intake Total 1540 ml 1190 ml Balance 1540 ml 1190 ml Results Result Diagram: 07/19/16 0938 07/19/16 0735 Results 24 hrs Laboratory Tests Test 07/18/16 17:40 07/18/16 17:50 07/18/16 18:45 07/18/16 22:10 White Blood Count 5.4 # Red Blood Count 2.52 L Hemoglobin 7.7 L Hematocrit 23.4 L Mean Corpuscular Volume 92.9 Mean Corpuscular Hemoglobin 30.6 Mean Corpuscular Hemoglobin Concent 32.9 Red Cell Distribution Width 14.3 Platelet Count 124 L Mean Platelet Volume 10.7 H Neutrophils % 69.4 Lymphocytes % 17.4 Monocytes % 12.8 H Eosinophils % 0.0 Basophils % 0.0 Nucleated Red Blood Cells % 0.0 Neutrophils # 3.7 Lymphocytes # 0.9 Monocytes # 0.7 Eosinophils # 0.0 Basophils # 0.0 Nucleated Red Blood Cells # 0.0 Prothrombin Time 16.9 #H Prothrombin Time Ratio 1.3 INR International Normalized Ratio 1.37 Activated Partial Thromboplast Time 32.6 Sodium Level 136 Potassium Level 5.0 Chloride Level 116 H Carbon Dioxide Level 16 L Anion Gap 9 Blood Urea Nitrogen 11 Creatinine 0.91 Glucose Level 149 Lactic Acid Level 3.6 H 2.6 H 2.0 Calcium Level 8.1 L Total Bilirubin 0.2 Direct Bilirubin 0.00 Indirect Bilirubin 0.2 Aspartate Amino Transf (AST/SGOT) 59 H Alanine Aminotransferase (ALT/SGPT) 37 Alkaline Phosphatase 71 Troponin I < 0.012 Total Protein 5.3 L Albumin 3.6 Globulin 1.70 Albumin/Globulin Ratio 2.11 Urine Color LT. YELLOW Urine Clarity CLEAR Urine pH 7.0 Urine Specific [place] <=1.005 L Urine Ketones NEGATIVE Urine Nitrite NEGATIVE Urine Bilirubin NEGATIVE Urine Urobilinogen 0.2 E.U./dL Urine Leukocyte Esterase NEGATIVE Urine Hemoglobin NEGATIVE Urine Glucose NEGATIVE Urine Total Protein NEGATIVE Test 07/19/16 05:13 07/19/16 07:35 07/19/16 09:38 Lab Scanned Report BLOOD TRANSFUSION Sodium Level 138 Potassium Level 4.4 Chloride Level 120 H Carbon Dioxide Level 16 L Anion Gap 6 L Blood Urea Nitrogen 10 Creatinine 0.71 Glucose Level 68 #L Calcium Level 7.7 L Magnesium Level 2.1 Iron Level 62 Total Iron Binding Capacity 118 L Percent Iron Saturation 53 H Ferritin 260.0 Total Bilirubin 0.5 Direct Bilirubin 0.00 Indirect Bilirubin 0.5 Aspartate Amino Transf (AST/SGOT) 77 H Alanine Aminotransferase (ALT/SGPT) 45 Alkaline Phosphatase 64 Total Protein 4.8 L Albumin 2.8 L Globulin 2.00 Albumin/Globulin Ratio 1.40 White Blood Count 2.7 #L Red Blood Count 3.76 #L Hemoglobin 11.1 #L Hematocrit 33.1 #L Mean Corpuscular Volume 88.0 Mean Corpuscular Hemoglobin 29.5 Mean Corpuscular Hemoglobin Concent 33.5 Red Cell Distribution Width 15.5 H Platelet Count 117 L Mean Platelet Volume 12.2 H Neutrophils % 52.0 Lymphocytes % 30.1 Monocytes % 17.5 H Eosinophils % 0.0 Basophils % 0.0 Nucleated Red Blood Cells % 0.0 Neutrophils # 1.4 L Lymphocytes # 0.8 Monocytes # 0.5 Eosinophils # 0.0 Basophils # 0.0 Nucleated Red Blood Cells # 0.0 Medications Medications Current Medications Sodium Chloride (NS) 1,000 ml @ 60 mls/hr [id number] IV Last administered on 07/19t 00:19; Admin Dose 60 MLS/HR; Start 07/18/16 at 21:00 Lorazepam (Ativan) 0.5 mg Q6H PRN IV ANXIETY; Start 07/18/16 at 20:00 Ondansetron HCl (Zofran Inj) 4 mg Q6H PRN IV NAUSEA AND/OR VOMITING; Start at 20:00 Acetaminophen (Tylenol Tab) 650 mg Q6H PRN PO PAIN LEVEL 1-3 OR FEVER; Start at 20:00 Morphine Sulfate (morphine) 2 mg Q4H PRN IV PAIN LEVEL 7-10; Start 07/18/16 at 20:00 Docusate Sodium (Colace) 100 mg Q12 PO ; Start 07/18/16 at 21:00 Bisacodyl (Dulcolax) 5 mg DAILY PO ; Start 07/19/16 at 09:00 Loperamide HCl (Imodium Cap) 2 mg Q6H PRN PO DIARRHEA; Start 07/18/16 at 20:00 Benazepril HCl (Lotensin) 10 mg DAILY PO Last administered on 07/19/16 09:23; Admin Dose 10 MG; Start 07/19/16 at 09:00 Amylase/Lipase/ Protease (CREON (12k-38k-60k)) 1 cap TID PO Last administered on 07/19/16 09:22; Admin Dose 1 CAP; Start 07/19/16 at 10:00 Miscellaneous Information (*Rx Drug Level Order Reminder*) VANCOMYCIN TROUGH 07/20 AT 0600 ONCE ONCE XX ; Start 07/20/16 at 06:00; Stop 07/20/16 at 06:01 JOAQUIN PARKER MD July 19, 2016 10:43
[2016-07-19] MEDS ORDERED: SOD CHLORIDE 0.9% 100 ML ONE (10:59)
[2016-07-19] MEDS ORDERED: IOHEXOL 300MG/ML 150 ML BTL ONE (10:59)
--- NOTE | 2016-07-19 11:31 | RADRPT ---
PROCEDURE: CT Chest, Abdomen and Pelvis with contrast. CLINICAL INDICATION: Fever and sepsis TECHNIQUE: CT scan of the chest, abdomen, and pelvis with contrast was performed on a multi-slice CT scanner. The patient was scanned following the uncomplicated intravenous administration of 80 m l of Omnipaque 300 intravenous contrast. Coronal and sagittal reformatted images were obtained from the axial source images. DLP 287.3 mGycm CTDIvol 4.4 mGy One or more of the following dose reduction techniques were used: - Automated exposure control. - Adjustment of the mA and/or kV according to patient size. - Use of iterative reconstruction technique. COMPARISON: CT abdomen pelvis 05/20/2016 FINDINGS: CT chest: There are bilateral small layering effusions which cause compressive atelectasis of the lower lungs bilaterally. Septal thickening and mild ground-glass is seen within the aerated lungs which are oth erwise clear. Surgical changes are seen in the right lower lobe from partial lung resection with sca rring. This is stable. Airways wall thickening is seen within the area of surgery in the right lowe r lung mildly elsewhere within the remainder of the lungs and the airways are overall patent. There is a right-sided chest port tip terminates in the SVC. There are no enlarged lymph nodes within the axilla over the mediastinum. There is shotty adenopath y in the mediastinum which may be reactive in nature. Anasarca changes of the thorax soft tissues a nd subcutaneous fat is present. Atherosclerotic changes of the aorta and coronary arteries are partially visualized without visible cardiomegaly. There is no acute upper abdominal abnormality. Mild ascites is present. Degenerative changes are se en within the thoracic spine and shoulders with no acute osseous abnormality. CT abdomen and pelvis: There is mild anasarca of the soft tissues of the abdomen and pelvis. There is mild intra-abdominal ascites present. There is fatty infiltration with no evidence of enhancing lesion. There is atrophy of the left hepa tic lobe which is stable from prior exam. Surgical changes are seen at the rachelle hepatis resection of the gallbladder and the jejunal anastomosis with the biliary ductal system and appears grossly st able. Surgical changes are also seen from partial gastric resection with a gastrojejunostomy and th is is unchanged. There is no biliary ductal dilatation. The portal vein is intact without thrombus. Surgical changes of partial pancreatic resection are also present with stable appearance of pancrea tic atrophy without pancreatic ductal dilatation or surrounding inflammation. There is no definable soft tissue mass in the surgical bed with no enlarged lymph nodes in the abdomen and pelvis. The spleen is normal in size and homogeneous in density. The pancreas is within normal limits witho ut focal lesion or surrounding inflammation. The adrenal glands are symmetric and normal. There is symmetric enhancement the renal parenchyma with a areas of bilateral focal renal parenchyma l atrophy which appears stable.. No renal calculus or obstructive uropathy or mass lesion is seen. The aorta is of normal caliber. Aortic vascular calcifications are present. There are no enlarged lymph nodes in the abdomen and pelvis. There is no bowel obstruction. There is generalized wall thickening of the small and large bowel wh ich likely represents third spacing of fluid. There is no free air. There is a moderately diffusely fecal filled colon. The appendix is unremarkable. Degenerative changes are seen in the lumbar spine with no acute osseous abnormality. The uterus and adnexal structures are grossly unremarkable. IMPRESSION: Anasarca is seen of mild severity with small bilateral layering effusions along with mild intra-abdo suma ascites. Surgical changes of partial right lower lung resection appears stable with adjacent scarring is unch anged. Surgical changes or per procedure also present with no evidence of a recurrent soft tissue mass in t he surgical bed or elsewhere within the chest, abdomen, and pelvis. Shoddy mediastinal adenopathy may be reactive in nature. Atherosclerotic disease is present. There is a fecal filled colon. There is generalized wall thickening of the small and large bowel whi ch likely represents third spacing of fluid. Areas of parenchymal atrophy within the kidneys bilaterally are seen that are stable from prior exam . Fatty liver is seen with stable atrophy of the left hepatic lobe. Stable appearance of pancreatic atrophy involving the remaining tail parenchyma. RPTAT: AA .Natty Umaña MD, MD Date Time Electronically viewed and signed by .Natty Umaña MD, MD on 07/19/2016 11:31 .Candace/
--- NOTE | 2016-07-19 14:43 | PN ---
DATE: 07/19/2016 SUBJECTIVE: No acute changes overnight. The patient is alert, denies pain, discomfort. No fevers. No nausea, vomiting, diarrhea. LABORATORY DATA: WBC 2.7, platelets 117. No shift, no bands. BUN 10, creatinine 0.71. INDWELLINGS: Right chest Port-A-Cath. DIAGNOSTICS: CT of the abdomen and pelvis revealed anasarca with bilateral pleural effusion and mil d intraabdominal ascites, fecal-filled colon. Chest x-ray on admission revealed no acute disease. ANTIMICROBIALS: The patient is status post: 1. Vancomycin. 2. Cefepime. PHYSICAL EXAMINATION: GENERAL: This is a cachectic, well-developed, middle-aged woman who is alert, in no distre ss. HEENT: Head atraumatic, normocephalic. Sclerae anicteric. Buccal mucosa pink. NECK: Supple. CHEST: Rise symmetrical. Breath sounds clear. HEART: S1, S2. ABDOMEN: Soft, bowel tones present. EXTREMITIES: Without cyanosis. ASSESSMENT: 1. Low grade fevers, so far no evidence of acute infectious process. Patient had a urine culture t hat is deemed negative. 2. Severe constipation with fecal impaction. 3. History of gastric cancer status post chemotherapy. 4. Right chest Port-A-Cath placed in 2014. 5. Acute anemia. PLAN: The patient remains stable. Antibiotics were discontinued. We will continue observing her a nd consider tap water enema and laxatives. Repeat cultures p.r.n. Dictated By: FLORIDA SHETTY CHART CALCULATOR desmond NUNN/PURVI Conf#: [id number] DID#: [id number]
--- NOTE | 2016-07-19 16:37 | CONS ---
DATE OF ADMISSION: 07/18/2016 DATE OF CONSULTATION: 07/18/2016 TYPE OF CONSULTATION: Infectious disease. REASON FOR CONSULTATION: Antibiotic management. HISTORY OF PRESENT ILLNESS: Darling Pizarro is a 56-year-old female who comes in with f ever intermittently over the last 1-1/2 weeks and is being seen for antibiotic management. The past problems include: 1. History of stomach cancer. 2. Previous colitis. The patient presents with fever. She has TPN. She has had a fever intermittently for the last 3 we eks. She was on 7 days of antibiotics for UTI which she finished yesterday. She is unable to swall ow, and she has pain in her tongue. 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 PAST MEDICAL HISTORY: As outlined. PAST SURGICAL HISTORY: As outlined. FAMILY HISTORY: Noncontributory. SOCIAL HISTORY: She does not smoke or drink or abuse drugs. ALLERGIES: NONE TO PENICILLIN, SULFA, OR FOODS. MEDICATIONS: Per chart. REVIEW OF SYSTEMS: As per HPI. PHYSICAL EXAMINATION: GENERAL: The patient is a well-developed, well-nourished female who is alert, responsive, in no acu te distress. VITAL SIGNS: Stable. She is afebrile. SKIN: Without generalized rash. She is pale. HEENT: Within normal limits. NECK: Supple. LYMPH NODES: None palpable. CHEST: Decreased breath sounds at the bases. HEART: Without murmur or gallop. ABDOMEN: Soft, diffusely tender without organosplenomegaly or masses. EXTREMITIES: Without cyanosis, clubbing, or edema. RECTAL AND GENITAL: Deferred. NEUROLOGIC: No focal neurological abnormalities. ANCILLARY LABORATORY DATA: White count 5.4, H and H 7.7 and 23.4, platelet count 124,000. BUN and creatinine 11/0.91. Random glucose 149. Urine culture at 24 hours is negative. White count today is 2.7. BUN and creatinine 10/0.71. Urine is negative for nitrite and leukocyte esterase. IMAGING STUDIES: Chest x-ray: No acute disease. CT scan of the abdomen and pelvis showed the ches t to have bilateral small layering effusions. She has anasarca, surgical changes of partial right l ower lung resection, shotty mediastinal lymphadenopathy, and fatty liver. IMPRESSION AND PLAN: The patient currently was treated with vancomycin and cefepime. This is being held for the time being. The etiology of her fever is not clear. She does have a Port-A-Cath whic h may be the source of the fever. We will observe her cultures. I will dictate my findings to the hospitalist. Dictated By: FINN PACHECO MD, JD/PURVI Conf#: [id number] DID#: [id number]
[2016-07-20] VITALS (13 sets, daily range): BP systolic 134–158; BP diastolic 84–96; PULSE 65–87; RESP 18–20
[2016-07-20] MEDS: SOD CHLORIDE 0.9% 1,000 ML IV SCH (06:20)
[2016-07-20 07:37] LABS: ADD SCAN DIFF NO
[2016-07-20 07:39] LABS: HEMATOCRIT 34.2 % (37.0-47.0); HEMOGLOBIN 11.5 g/dl (12.0-16.0); LYMPHOCYTES # 0.7 10^3/ul (0.8-2.9); LYMPHOCYTES % 20.9 % (15.0-51.0); MEAN CORPUSCULAR HEMOGLOBIN 29.9 pg (29.0-33.0); MEAN CORPUSCULAR HGB CONC 33.6 g/dl (32.0-37.0); MEAN CORPUSCULAR VOLUME 89.1 fl (82.0-101.0); MEAN PLATELET VOLUME 10.7 fl (7.4-10.4); MONOCYTE # 0.4 10^3/ul (0.3-0.9); MONOCYTES % 12.7 % (0.0-11.0); NEUTROPHIL # 2.2 10^3/ul (1.6-7.5); NEUTROPHILS % 66.1 % (39.0-77.0); PLATELET COUNT 114 10^3/UL (140-415); RED BLOOD COUNT 3.84 10^6/ul (4.20-5.40); RED CELL DISTRIBUTION WIDTH 15.8 % (11.5-14.5); WHITE BLOOD COUNT 3.3 10^3/ul (4.8-10.8)
[2016-07-20 08:06] LABS: CREATININE 0.82 mg/dl (0.44-1.00); POTASSIUM 4.3 mmol/L (3.5-5.1)
[2016-07-20] MEDS: BISACODYL (EC) 5 MG TAB PO SCH (08:46)
[2016-07-20] MEDS: CREON (12k-38k-60k) 1 CAP PO SCH ×3 (08:46→21:25)
[2016-07-20] MEDS: DOCUSATE SODIUM 100 MG CAP PO SCH ×2 (08:46→21:00)
[2016-07-20] MEDS: BENAZEPRIL 10 MG TAB PO SCH (08:46)
--- NOTE | 2016-07-20 10:06 | PN ---
Date/Time of Note Date/Time of Note DATE: 07/20/16 TIME: 10:04 Assessment/Plan VTE Prophylaxis VTE Prophylaxis Intervention: heparin Lines/Catheters IV Catheter Type (from Nrs): portacath Assessment/Plan Assessment/Plan Assessment/Plan 56 yo F with pmhx gastric ca sp partial gastrectomy/xrt/chemo presents with 3 weeks of subjective fevers, found to be objectively febrile in oncologist's office 5.30. Pt recently treated for ?UTI? at oncologist's office. Source of fever unclear. Infectious workup still in process. UA unremarkable and culture negative. Blood cultures in process. Given pt with port that's still being used, risk of bacteremia. CT scan last month reportedly unremarkable. Of note, pt also with rising CEA. Consider malignancy related? Though imaging negative as noted before PLAN cont to hold abx as no noelle neutropenia ID on board HIV negative await further culture results trial of topical steroids for LE rash, suspect contact dermatitis from SCDs DVT propx with SQH general diet plan to monitor for additional 24 hours and if remains afebrile consider discharge Subjective 24 Hr Interval Summary Free Text/Dictation Afebrile. Pt notes a new itchy rash where her SCDs have been Exam/Review of Systems Vital Signs Vitals Vital Signs Date Time Temp Pulse Resp B/P Pulse Ox O2 Delivery O2 Flow Rate FiO2 07/20/16 08:22 68 07/20/16 07:50 98.1 18 156/90 96 07/18/16 20:31 Room Air 07/18/16 17:42 2 Intake and Output 07/19/16 07/19/16 07/20/16 15:00 23:00 07:00 Intake Total 600 ml 1080 ml Balance 600 ml 1080 ml Exam nad, pleasant no mrg lungs clear abd soft no le edema +mild diffuse erythema over bl LEs from knee down over area where SCDs had been applied Results Result Diagram: 07/20/16 0700 07/20/16 0700 Results 24 hrs Laboratory Tests Test 07/19/16 17:00 07/20/16 05:16 07/20/16 07:00 Stool Occult Blood POSITIVE Lab Scanned Report BLOOD TRANSFUSION White Blood Count 3.3 #L Red Blood Count 3.84 L Hemoglobin 11.5 L Hematocrit 34.2 L Mean Corpuscular Volume 89.1 Mean Corpuscular Hemoglobin 29.9 Mean Corpuscular Hemoglobin Concent 33.6 Red Cell Distribution Width 15.8 H Platelet Count 114 L Mean Platelet Volume 10.7 H Neutrophils % 66.1 Lymphocytes % 20.9 Monocytes % 12.7 H Eosinophils % 0.0 Basophils % 0.0 Nucleated Red Blood Cells % 0.0 Neutrophils # 2.2 Lymphocytes # 0.7 L Monocytes # 0.4 Eosinophils # 0.0 Basophils # 0.0 Nucleated Red Blood Cells # 0.0 Sodium Level 139 Potassium Level 4.3 Chloride Level 124 H Carbon Dioxide Level 16 L Anion Gap 3 L Blood Urea Nitrogen 8 Creatinine 0.82 Glucose Level 77 Calcium Level 8.0 L HIV (1&2) Antibody NEGATIVE Medications Medications Current Medications Lorazepam (Ativan) 0.5 mg Q6H PRN IV ANXIETY; Start 07/18/16 at 20:00 Ondansetron HCl (Zofran Inj) 4 mg Q6H PRN IV NAUSEA AND/OR VOMITING; Start at 20:00 Acetaminophen (Tylenol Tab) 650 mg Q6H PRN PO PAIN LEVEL 1-3 OR FEVER; Start at 20:00 Morphine Sulfate (morphine) 2 mg Q4H PRN IV PAIN LEVEL 7-10; Start 07/18/16 at 20:00 Docusate Sodium (Colace) 100 mg Q12 PO ; Start 07/18/16 at 21:00 Bisacodyl (Dulcolax) 5 mg DAILY PO ; Start 07/19/16 at 09:00 Loperamide HCl (Imodium Cap) 2 mg Q6H PRN PO DIARRHEA; Start 07/18/16 at 20:00 Benazepril HCl (Lotensin) 10 mg DAILY PO Last administered on 07/20/16 08:46; Admin Dose 10 MG; Start 07/19/16 at 09:00 Amylase/Lipase/ Protease (CREON (12k-38k-60k)) 1 cap TID PO Last administered on 07/20/16 08:46; Admin Dose 1 CAP; Start 07/19/16 at 10:00 Procedures Procedures cultures negative CT reviewed, no clear masses/fluid collections HIV negative JOAQUIN PARKER MD Jul 20, 2016 10:06
[2016-07-20] MEDS: HYDROCORTISONE 0.5% 28.35 GM OINT TOP SCH ×2 (11:45→21:29)
--- NOTE | 2016-07-20 14:30 | CONS ---
Date/Time of Note Date/Time of Note DATE: 07/20/16 TIME: 14:29 Assessment/Plan Assessment/Plan Chief Complaint/Hosp Course SUBJECTIVE: No acute changes overnight. The patient is alert, denies pain, discomfort. No fevers. No nausea, vomiting, diarrhea. INDWELLINGS: Right chest Port-A-Cath. DIAGNOSTICS: CT of the abdomen and pelvis revealed anasarca with bilateral pleural effusion and mild intraabdominal ascites, fecal-filled colon. Chest x- ray on admission revealed no acute disease. PHYSICAL EXAMINATION: GENERAL: This is a cachectic, well-developed, middle-aged woman who is alert, in no distress. HEENT: Head atraumatic, normocephalic. Sclerae anicteric. Buccal mucosa pink. NECK: Supple. CHEST: Rise symmetrical. Breath sounds clear. HEART: S1, S2. ABDOMEN: Soft, bowel tones present. EXTREMITIES: Without cyanosis. ASSESSMENT: 1. Low grade fevers, so far no evidence of acute infectious process. 2. Severe constipation with fecal impaction. 3. History of gastric cancer status post chemotherapy. 4. Right chest Port-A-Cath placed in 2014. 5. Acute anemia. PLAN: The patient remains stable. Off antibiotics Problems: Consultation Date/Type/Reason Admit Date/Time July 18, 2016 at 19:39 Initial Consult Date Type of Consultation: ID Exam/Review of Systems Vital Signs Vitals Vital Signs Date Time Temp Pulse Resp B/P Pulse Ox O2 Delivery O2 Flow Rate FiO2 07/20/16 13:13 81 07/20/16 11:33 98.7 18 155/96 98 07/18/16 20:31 Room Air 07/18/16 17:42 2 Intake and Output 07/19/16 07/19/16 07/20/16 15:00 23:00 07:00 Intake Total 600 ml 1080 ml Balance 600 ml 1080 ml Results Result Diagram: 07/20/16 0700 07/20/16 0700 Results 24 hrs Laboratory Tests Test 07/19/16 17:00 07/20/16 05:16 07/20/16 07:00 Stool Occult Blood POSITIVE Lab Scanned Report BLOOD TRANSFUSION White Blood Count 3.3 #L Red Blood Count 3.84 L Hemoglobin 11.5 L Hematocrit 34.2 L Mean Corpuscular Volume 89.1 Mean Corpuscular Hemoglobin 29.9 Mean Corpuscular Hemoglobin Concent 33.6 Red Cell Distribution Width 15.8 H Platelet Count 114 L Mean Platelet Volume 10.7 H Neutrophils % 66.1 Lymphocytes % 20.9 Monocytes % 12.7 H Eosinophils % 0.0 Basophils % 0.0 Nucleated Red Blood Cells % 0.0 Neutrophils # 2.2 Lymphocytes # 0.7 L Monocytes # 0.4 Eosinophils # 0.0 Basophils # 0.0 Nucleated Red Blood Cells # 0.0 Sodium Level 139 Potassium Level 4.3 Chloride Level 124 H Carbon Dioxide Level 16 L Anion Gap 3 L Blood Urea Nitrogen 8 Creatinine 0.82 Glucose Level 77 Calcium Level 8.0 L HIV (1&2) Antibody NEGATIVE Medications Medications Current Medications Lorazepam (Ativan) 0.5 mg Q6H PRN IV ANXIETY; Start 07/18/16 at 20:00 Ondansetron HCl (Zofran Inj) 4 mg Q6H PRN IV NAUSEA AND/OR VOMITING; Start at 20:00 Acetaminophen (Tylenol Tab) 650 mg Q6H PRN PO PAIN LEVEL 1-3 OR FEVER; Start at 20:00 Morphine Sulfate (morphine) 2 mg Q4H PRN IV PAIN LEVEL 7-10; Start 07/18/16 at 20:00 Docusate Sodium (Colace) 100 mg Q12 PO ; Start 07/18/16 at 21:00 Bisacodyl (Dulcolax) 5 mg DAILY PO ; Start 07/19/16 at 09:00 Loperamide HCl (Imodium Cap) 2 mg Q6H PRN PO DIARRHEA; Start 07/18/16 at 20:00 Benazepril HCl (Lotensin) 10 mg DAILY PO Last administered on 07/20/16 08:46; Admin Dose 10 MG; Start 07/19/16 at 09:00 Amylase/Lipase/ Protease (CREON (12k-38k-60k)) 1 cap TID PO Last administered on 07/20/16 12:19; Admin Dose 1 CAP; Start 07/19/16 at 10:00 Heparin Sodium (Porcine) (Heparin (5000 Units/0.5 ml)) 5,000 unit BID SC ; Start 07/20/16 at 21:00 Hydrocortisone (Hydrocortisone 0.5% Oint) 1 applic BID TOP Last administered on 07/20/16 11:45; Admin Dose 1 APPLIC; Start 07/20/16 at 10:30 FLORIDA SHETTY NP Jul 20, 2016 14:30
[2016-07-20] MEDS: HEPARIN 5,000 UNIT/0.5 ML VIAL SC SCH (21:25)
[2016-07-21 00:07] VITALS: PULSE 71
[2016-07-21 04:01] VITALS: BP 155/88; RESP 18
[2016-07-21 04:07] VITALS: PULSE 73
[2016-07-21 07:47] VITALS: BP 158/98; RESP 18
[2016-07-21 08:03] LABS: ADD SCAN DIFF NO
[2016-07-21 08:16] LABS: BASOPHILS % 0.3 % (0.0-2.0); EOSINOPHILS % 0.3 % (0.0-7.0); HEMOGLOBIN 11.5 g/dl (12.0-16.0); LYMPHOCYTES # 0.8 10^3/ul (0.8-2.9); LYMPHOCYTES % 21.1 % (15.0-51.0); MEAN CORPUSCULAR HEMOGLOBIN 29.3 pg (29.0-33.0); MEAN CORPUSCULAR HGB CONC 32.9 g/dl (32.0-37.0); MEAN CORPUSCULAR VOLUME 89.3 fl (82.0-101.0); MEAN PLATELET VOLUME 11.1 fl (7.4-10.4); MONOCYTE # 0.5 10^3/ul (0.3-0.9); MONOCYTES % 12.7 % (0.0-11.0); NEUTROPHIL # 2.4 10^3/ul (1.6-7.5); NEUTROPHILS % 65.3 % (39.0-77.0); PLATELET COUNT 122 10^3/UL (140-415); RED BLOOD COUNT 3.92 10^6/ul (4.20-5.40); RED CELL DISTRIBUTION WIDTH 15.6 % (11.5-14.5); WHITE BLOOD COUNT 3.6 10^3/ul (4.8-10.8)
[2016-07-21 08:22] VITALS: PULSE 71
--- NOTE | 2016-07-21 08:56 | PDOCDIS ---
Discharge Instructions CONDITION Patient Condition: Good HOME CARE INSTRUCTIONS: Diet Instructions: Regular ACTIVITY: Activity Restrictions: No Restrictions FOLLOW UP/APPOINTMENTS Appointments Follow up with your oncologist within 7 days OTHER ORDERS: Other Orders: When you feel warm at home, take your temperature with a thermometer. If your temperature is >38C, contact your primary care physician or oncologist JOAQUIN PARKER MD Jul 21, 2016 08:56
[2016-07-21] MEDS: DOCUSATE SODIUM 100 MG CAP PO SCH (09:00)
[2016-07-21] MEDS: BISACODYL (EC) 5 MG TAB PO SCH (09:00)
[2016-07-21] MEDS: HEPARIN 5,000 UNIT/0.5 ML VIAL SC SCH (09:00)
--- NOTE | 2016-07-21 09:05 | DS ---
Date/Time of Note Date/Time of Note DATE: 07/21/16 TIME: 09:00 Discharge Summary Admission/Discharge Info Admit Date/Time July 18, 2016 at 19:39 Discharge Date/Time Final Diagnosis history of fever Patient Condition: Good Consults Infectious Disease Procedures blood cultures negative x 2 urine culture negative HIV Ab negative 5.31 CT C/A/P with contrast: +stool in colon, fatty liver with stable atrophy of L hepatic lobe Hx of Present Illness Chief complaint: Fevers 3 weeks Patient is a 56-year-old female with stomach cancer and previous colitis who presents with fevers. The patient has had fever off and on for the past 3 weeks. She was on 7 days of antibiotics for a UTI and finished yesterday. She finished antibiotics yesterday for her UTI but was still having fevers. Patient states that she does notice urinary frequency and at times has been having symptoms of dysuria. Overall patient has also been feeling weak. Allergies: NKDA Medications: See APR Hospital Course 56 yo F with pmhx gastric ca sp resection, chemo, RT presented with c/o several weeks of feeling warm at home and 1 documented fever to 102F on date of admission. Pt given empiric abx x 1 in the ED, these were not continued after admission. On no antimicrobials pt was observed in the hospital. She did not have any documented fevers during her stay. Regarding the etio of her fever prior to admission, blood and urine cultures were obtained and negative. CT C/A/ P did not reveal a clear source. Serial CBCs without evidence of neutropenia. Infectious disease also involved in patients care, and agreed that after >48 hours of observation off antibiotics and no documented fever, it is reasonable to discharge this patient with close clinical follow up. A copy of her CT scan report and this discharge summary were provided to the patient to share with her other providers. Home Meds Active Scripts Loperamide Hcl* (Imodium*) 2 Mg Capsule, 2 MG PO Q6H Y for DIARRHEA for 30 Days , CAP MAX 16 mg/day Prov:RHODA KYLE MD 05/25/16 Reported Medications Ramipril (Ramipril) 2.5 Mg Capsule, 2.5 MG PO DAILY, CAP 05/20/16 Ampofg-Vpzfjfxi-Zonaaza* (Marissaon DR* 6,000) 6,000 L-19,000-30,000 Unit Capsule. , 1 CAP PO TID, CAP 01/09/14 Primary Care Provider Morgan Bowden Pending Labs Laboratory Tests Test 07/21/16 07:24 White Blood Count 3.610^3/ul (4.8-10.8) Red Blood Count 3.9210^6/ul (4.20-5.40) Hemoglobin 11.5g/dl (12.0-16.0) Hematocrit 35.0% (37.0-47.0) Mean Corpuscular Volume 89.3fl (82.0-101.0) Mean Corpuscular Hemoglobin 29.3pg (29.0-33.0) Mean Corpuscular Hemoglobin Concent 32.9g/dl (32.0-37.0) Red Cell Distribution Width 15.6% (11.5-14.5) Platelet Count 56876^3/UL (140-415) Mean Platelet Volume 11.1fl (7.4-10.4) Neutrophils % 65.3% (39.0-77.0) Lymphocytes % 21.1% (15.0-51.0) Monocytes % 12.7% (0.0-11.0) Eosinophils % 0.3% (0.0-7.0) Basophils % 0.3% (0.0-2.0) Nucleated Red Blood Cells % 0.0/100WBC (0.0-0.0) Neutrophils # 2.410^3/ul (1.6-7.5) Lymphocytes # 0.810^3/ul (0.8-2.9) Monocytes # 0.510^3/ul (0.3-0.9) Eosinophils # 0.010^3/ul (0.0-0.5) Basophils # 0.010^3/ul (0.0-0.1) Nucleated Red Blood Cells # 0.010^3/ul (0.0-0.0) JOAQUIN PARKER MD Jul 21, 2016 09:05
[2016-07-21] MEDS: CREON (12k-38k-60k) 1 CAP PO SCH (09:32)
[2016-07-21] MEDS: HYDROCORTISONE 0.5% 28.35 GM OINT TOP SCH (09:32)
[2016-07-21] MEDS: BENAZEPRIL 10 MG TAB PO SCH (09:32)
== END 2016-07-21 11:12 | disposition home or self-care (01) | DRG 864 ==
LOC: E/R 16:24 → MS4 19:39
PROVIDERS: ADMIT Family Medicine; ATTEND Family Medicine
PROC: 30263N1 (ICD-10-PCS; principal; 2016-07-18)
DX: R50.9 Fever, unspecified (principal); C16.9 Malignant neoplasm of stomach, unspecified; E44.0 Moderate protein-calorie malnutrition; E87.2 Acidosis; Z90.3 Acquired absence of stomach [part of]; D64.9 Anemia, unspecified; Z68.1 Body mass index [BMI] 19.9 or less, adult; I25.10 Atherosclerotic heart disease of native coronary artery without angina pectoris; K56.41 Fecal impaction; Z92.3 Personal history of irradiation; Z92.21 Personal history of antineoplastic chemotherapy; R97.1 Elevated cancer antigen 125 [CA 125]
CPT/HCPCS: 36415; 36430; 71010; 71260; 74177; 80048; 80053; 81003; 82270; 82728; 83540; 83605; 83735; 84466; 84484; 85025; 85610; 85730; 86703; 86850; 86900; 86901; 86920; 87040; 87045; 87086; 93005; 96365; 96366; 96368; C9113; J0692; J1644; J3370; J7030; J7040; P9016; Q9967

== ENCOUNTER 2016-09-07 08:16 | Emergency (ER) | payer MEDICARE, OTHER ==
[~2016-09-07] VITALS: Wt 45.5 kg
[2016-09-07] MEDS ORDERED: ACETAMINOPHEN 500 MG TAB PO STA (08:54)
--- NOTE | 2016-09-07 09:05 | ERD ---
ER Documentation Chief Complaint Date/Time DATE: 09/07/16 Chief Complaint Left rib pain s/p fall HPI The patient is a 56-year-old female who presents to the Emergency Department with complaint of left rib pain. The patient reports that on Sunday she had a mechanical trip and fall at home, and fell directly onto the left lateral ribs with a formed fist underneath her. Since, she has developed pain to the area, which is sharp in nature. The pain is worsened with movement, palpitation, coughing and upon taking a deep breath. She denies any hemoptysis. Denies any overlying skin changes, lacerations, abrasions, ecchymosis. Denies any head injury or trauma. Denies loss of consciousness, syncope or seizure-like activity. Denies any abdominal pain. Denies any flank pain. The patient rates her current pain as 9 out of 10. She notes that she took a dose of ibuprofen yesterday afternoon, with some relief of pain. However, upon waking up this morning her pain had returned. Given persistence of pain she decided to present to the Emergency Department for further evaluation. She denies any shortness of breath, palpitations or lower extremity swelling. Denies any other complaints at this time. ROS All systems reviewed and are negative except as per history of present illness. Medications Home Meds Active Scripts Ibuprofen* (Motrin*) 600 Mg Tab, 600 MG PO Q6, #30 TAB Prov:BINA PIERRE PA-C 09/07/16 Tramadol HCl (Tramadol HCl) 50 Mg Tablet, 50 MG PO Q6 Y for PAIN, #12 TAB Prov:BINA PIERRE PA-C 09/07/16 Loperamide Hcl* (Imodium*) 2 Mg Capsule, 2 MG PO Q6H Y for DIARRHEA for 30 Days , CAP MAX 16 mg/day Prov:RHODA KYLE MD 05/25/16 Reported Medications Ramipril (Ramipril) 2.5 Mg Capsule, 2.5 MG PO DAILY, CAP 05/20/16 Whknnz-Bhfurajl-Nbvuxmq* (Creradha DR* 6,000) 6,000 L-19,000-30,000 Unit Capsule. , 1 CAP PO TID, CAP 01/09/14 Allergies Allergies: Coded Allergies: No Known Allergy (Unverified , 05/20/16) PMhx/Soc History of Surgery: Yes (Gastrectomy, Whipples) Anesthesia Reaction: No Hx Neurological Disorder: Yes (Cavour Palsy) Hx Respiratory Disorders: Yes (Lung CA 2015) Hx Cardiac Disorders: Yes (Fast HR) Hx Psychiatric Problems: No Hx Miscellaneous Medical Probl: No Hx Alcohol Use: No Hx Substance Use: No Hx Tobacco Use: No Physical Exam Vitals Vital Signs Date Time Temp Pulse Resp B/P Pulse Ox O2 Delivery O2 Flow Rate FiO2 09/07/16 11:39 99.0 93 16 122/76 96 Room Air 09/07/16 08:25 100.2 124 20 111/79 95 Physical Exam GENERAL: Well-developed, well-nourished, female, in no acute distress. Nontoxic. HEENT: Head is normocephalic, atraumatic. No hematomas. No scleral pallor or icterus. Pupils equal, round and reactive to light. Extraocular movements intact. Conjunctiva pink. Moist mucous membranes. NECK: Supple. Full range of motion. No posterior midline tenderness. RESPIRATORY: Lungs are clear to auscultation bilaterally. No rales, rhonchi or wheezing. Equal breath sounds. Normal expiratory effort. No accessory muscle use. CHEST WALL: Tenderness to palpation over the left anterolateral ribs, ribs 6-7. No crepitus. No flail chest. No vesicles or rashes. No ecchymosis. CARDIOVASCULAR: Regular rate and rhythm. S1 and S2 normal. No murmurs, rubs, or gallops. Distal pulses are palpable, 2+ bilaterally. Capillary refill is less than 2 seconds. GASTROINTESTINAL: Abdomen is soft, non-tender, and non-distended. No guarding, no rebound tenderness. Normal bowel sounds. FLANK: No CVA tenderness. BACK: No midline tenderness. EXTREMITIES: No clubbing, cyanosis, or edema. Normal skin perfusion. Moving all extremities. Muscle tone is normal. No focal swelling or erythema. NEUROLOGIC: The patient is alert, awake, and oriented x 3. No focal neurologic deficits. INTEGUMENT: Skin is intact. Warm and dry. No rashes, no petechiae present. PSYCHIATRIC: Cooperative. Appropriate. Results 24 hrs Current Medications Medications (Trade) Dose Ordered Sig/Priscila Route PRN Reason Start Time Stop Time Status Last Admin Dose Admin Acetaminophen (Tylenol Tab) 500 mg ONCE STAT PO 09/07/16 08:54 7/20/17 08:56 DC 09/07/16 09:03 Procedures/MDM DIAGNOSTIC TESTS AND INTERPRETATION: PROCEDURE: XR Chest. CLINICAL INDICATION: pain to left ribs s/p fall TECHNIQUE: Single frontal view of the chest was obtained. COMPARISON: Chest x-ray from 05/20/2016 FINDINGS: A right chest wall Port-A-Cath is again noted, unchanged in position. The heart and mediastinum are within normal limits. There is stable scarring versus subsegmental atelectasis at the right lung base.. There is a small right pleural effusion. There is decreased osseous mineralization without evidence of an acute fracture. IMPRESSION: Decreased osseous mineralization without evidence of an acute fracture. Small right pleural effusion. Right chest wall Port-A-Cath is again noted. Stable scarring versus subsegmental atelectasis at the right lung base, possibly due to partial lung resection. Physician Ry Date Time Electronically viewed and signed by Suleman Crockett Physician on 09/07/2016 10:27 PROCEDURE: US Abdomen Complete. CLINICAL INDICATION: pain to left upper quadrant s/p fall TECHNIQUE: Multiple real-time images were acquired of the patient's abdomen and retroperitoneum utilizing a high resolution transducer. COMPARISON: None FINDINGS: The liver measures 15.6 cm and demonstrates moderately increased echogenicity. There is no intrahepatic biliary ductal dilatation. The extrahepatic common bile duct measures 3 mm. The main portal vein is patent with proper directional flow. The gallbladder is not visualized. The visualized pancreas is unremarkable. The spleen measures 8.8 cm. The right kidney measures 8.2 cm. The left kidney measures 6.7 cm. There is mild right hydronephrosis. There is no left hydronephrosis. Renal parenchymal echotexture is mildly increased bilaterally. The bladder is collapsed which limits evaluation. The visualized abdominal aorta and IVC are grossly unremarkable. No free fluid is noted in the 4 quadrants of the abdomen. IMPRESSION: No abdominopelvic ascites in the 4 quadrants of the abdomen. Moderate fatty infiltration of the liver. Mild right hydronephrosis. Bilateral kidneys are atrophic and mildly echogenic, possibly due to medical renal disease. Correlation with BUN and creatinine levels is recommended. The gallbladder is not visualized. Correlation with surgical history for cholecystectomy is recommended. Normal CBD. Physician Ry Date Time Electronically viewed and signed by Physician Ry on 09/07/2016 10:24 MEDICAL DECISION MAKING: This is a 56-year-old female presenting to the Emergency Department with left anterolateral rib pain s/p mechanical trip and fall onto fist at home. The patient had tenderness to palpation over the left anterolateral ribs noted on physical examination. Otherwise, no ecchymosis, no flail chest, no crepitus noted. X-rays revealed decreased osseous mineralization without evidence of an acute fracture, small right pleural effusion, right chest wall Port-A-Cath and stable scarring versus subsegmental atelectasis at the right lung base, possibly due to partial lung resection ( confirmed by patient). Otherwise, there was no evidence of significant abnormalities, rib fractures, or pneumothorax. FAST exam with no free fluid. Patient is stable, well-appearing, with no signs of acute distress and no current clinical findings to suggest cardiac contusion, cardiac trauma, pneumomediastinum, pulmonary contusion, sternum fracture, dislocation, flail chest, acute/surgical abdomen, intra-abdominal trauma/bleeding. The patient had no head injury, no loss of consciousness, no altered mental status or neurologic deficits, no current indication for head CT. I do not suspect acute coronary syndrome. After rest and administration of Tylenol, the patient reports no new complaints, and decreased pain. The patient's case was reviewed and discussed with ED attending/supervising physician, who agrees with management and recommends to discharge the patient home to follow up with PMD as an outpatient. Upon my review and interpretation of the patient's presentation, clinical data, and overall ER course, I believe the patient's symptoms are most consistent with rib contusion. At this time, the patient is in stable condition and therefore can be discharged home with a prescription for ibuprofen and Tramadol and strict return precautions for signs of deteriorating or worsening condition. The patient is advised to follow up with her primary care provider within 1-2 days for reevaluation and further management, or return to the ER sooner for any new or worsening symptoms, including chest pain, shortness of breath, diaphoresis, weakness, vomiting or abdominal pain. I shared my medical decision making and plan with the patient at length and in great detail, and the patient verbally understands and agrees with the plan for further observation and care as an outpatient. At the time of discharge, all questions were answered. Departure Diagnosis: Primary Impression: Contusion of rib on left side Encounter type: initial encounter Qualified Code: S20.212A - Contusion of rib on left side, initial encounter Condition: Stable Patient Instructions: Rib Contusion Additional Instructions: Llame al doctor MAANA y jamil miryam TOREY PARA DENTRO DE 1-2 KING.Dgale a la secretaria que nosotros le instruimos hacer esta torey.Avise o llame si cid condicin se empeora antes de la torey. Regresa aqui si peor o no mejor. BINA PIERRE PA-C Sep 07, 2016 09:05
--- NOTE | 2016-09-07 10:24 | RADRPT ---
PROCEDURE: US Abdomen Complete. CLINICAL INDICATION: pain to left upper quadrant s/p fall TECHNIQUE: Multiple real-time images were acquired of the patient's abdomen and retroperitoneum ut ilizing a high resolution transducer. COMPARISON: None FINDINGS: The liver measures 15.6 cm and demonstrates moderately increased echogenicity. There is no intrahepa tic biliary ductal dilatation. The extrahepatic common bile duct measures 3 mm. The main portal vein is patent with proper directional flow. The gallbladder is not visualized. The visualized pancreas is unremarkable. The spleen measures 8.8 cm. The right kidney measures 8.2 cm. The left kidney measures 6.7 cm. There is mild right hydronephrosi s. There is no left hydronephrosis. Renal parenchymal echotexture is mildly increased bilaterally. The bladder is collapsed which limits evaluation. The visualized abdominal aorta and IVC are grossly unremarkable. No free fluid is noted in the 4 quadrants of the abdomen. IMPRESSION: No abdominopelvic ascites in the 4 quadrants of the abdomen. Moderate fatty infiltration of the liver. Mild right hydronephrosis. Bilateral kidneys are atrophic and mildly echogenic, possibly due to medical renal disease. Correla tion with BUN and creatinine levels is recommended. The gallbladder is not visualized. Correlation with surgical history for cholecystectomy is recomme nded. Normal CBD. RPTAT: EE Physician Ry Date Time Electronically viewed and signed by Physician Ry on 09/07/2016 10:24 /
--- NOTE | 2016-09-07 10:27 | RADRPT ---
PROCEDURE: XR Chest. CLINICAL INDICATION: pain to left ribs s/p fall TECHNIQUE: Single frontal view of the chest was obtained. COMPARISON: Chest x-ray from 05/20/2016 FINDINGS: A right chest wall Port-A-Cath is again noted, unchanged in position. The heart and mediastinum are within normal limits. There is stable scarring versus subsegmental atelectasis at the right lung base.. There is a small right pleural effusion. There is decreased osseous mineralization without evidence of an acute fracture. IMPRESSION: Decreased osseous mineralization without evidence of an acute fracture. Small right pleural effusion. Right chest wall Port-A-Cath is again noted. Stable scarring versus subsegmental atelectasis at the right lung base, possibly due to partial lung resection. RPTAT: EE Physician Ry Date Time Electronically viewed and signed by Suleman Crockett Physician on 09/07/2016 10:27 /
[2016-09-07] MEDS ORDERED: IBUP-1542 PO (11:20)
[2016-09-07] MEDS ORDERED: TRAM50TA2 PO (11:20)
[2016-09-07 11:39] VITALS: BP 122/76; PULSE 93; RESP 16; TEMP 99
== END 2016-09-07 11:41 | disposition home or self-care (01) ==
LOC: FTE 08:16
DX: S20.212A Contusion of left front wall of thorax, initial encounter (principal); W01.0XXA Fall on same level from slipping, tripping and stumbling without subsequent striking against object, initial encounter; Y92.009 Unspecified place in unspecified non-institutional (private) residence as the place of occurrence of the external cause; Z85.118 Personal history of other malignant neoplasm of bronchus and lung
CPT/HCPCS: 71100